=== PATIENT | male | born 1980 | race Caucasian/White ===

== ENCOUNTER 2017-07-20 07:49 | Inpatient (IN) | END 2017-07-26 22:25 | disposition home health service (06) | DRG 872 ==

== ENCOUNTER → 2018-10-06 | Outpatient (CLI) | payer OTHER ==
[~2018-10-06] MED LIST: ASPI-817 PO; ASPI81TA52 PO; ATOR-2 PO; ATOR40TA68 PO; GEMF600T8 PO; GLIP10TA14 PO; INSU100I33 SC; LEVO750T8 PO; LIDOCAINE 1% (MPF) 5 ML VIAL SC ONE; MERO1VIA3 IV; METF-480 PO; METF850T13 PO; NATE120T PO; OMEG100024 PO; OMEP20CA16 PO; REPA1TAB14 PO; REPA1TAB5 PO; Vancomycin Iv Per Pharmacy XX; [UNRECOGNIZED DRUG - CODE] IJ
== END | disposition home or self-care (01) ==
LOC: MERGE 08:49 → RAD 08:49
PROVIDERS: ATTEND Internal Medicine Infectious Disease
DX: M86.8X7 Other osteomyelitis, ankle and foot (principal)
CPT/HCPCS: 36569; 71045; 76937; Z7610

== ENCOUNTER 2018-10-08 11:18 | Inpatient (IN) | payer OTHER ==
[~2018-10-08] VITALS: Ht 182.9 cm; Wt 113.5 kg
[~2018-10-08 11:18] MED LIST changes: -ASPI81TA52 PO; -ATOR-2 PO; -GLIP10TA14 PO; -LIDOCAINE 1% (MPF) 5 ML VIAL SC ONE; -MERO1VIA3 IV; -METF-480 PO; -NATE120T PO; -REPA1TAB5 PO; -Vancomycin Iv Per Pharmacy XX
[2018-10-08] MEDS ORDERED: ONDANSETRON 4 MG INJ IV STA (11:52)
[2018-10-08] MEDS ORDERED: SODIUM CHLORIDE 0.9% 1L BAG IV* STA (11:52)
[2018-10-08] MEDS ORDERED: CEFEPIME 2GM/50 ML (PMX) 50 ML IVPB STA (11:52)
[2018-10-08] MEDS ORDERED: HYDROmorphONE 1 MG/ML SYG IV STA (11:52)
[2018-10-08] MEDS ORDERED: VANCOMYCIN 1 GM (PMX) 250 ML IVPB ONE (12:00)
--- NOTE | 2018-10-08 12:59 | ERD ---
ER Documentation Chief Complaint Chief Complaint left leg/foot pain - history of osteomyelitis HPI 88-year-old male history of diabetes who was sent from clinic for admission for osteomyelitis of the left foot. The patient has had drainage and discharge. The patient is being evaluated and worked up but had some issues with his PICC line. The patient has not had antibiotics in the past 24 to 48 hours. Patient was sent by his team supervisor Dr. Dumont. Patient describes moderate throbbing pain to the area. No significant fevers or chills. Symptoms worsening over the past 48 hours. ROS All systems reviewed and are negative except as per history of present illness. Medications Home Meds Active Scripts Repaglinide* (Prandin*) 1 Mg Tablet, 0.5 MG PO WITH MEALS, #90 TAB Prov:OBIE MCKAY V. BUDGET EXAMINER 06/19/18 Metformin Hcl* (Metformin Hcl*) 850 Mg Tablet, 850 MG PO BID WITH MEALS, #60 TAB Prov:OBIE MCKAY V. BUDGET EXAMINER 06/19/18 [place]-3/Dha/Epa/Fish Oil (Fish Oil 1,000 mg Softgel) 1,000 Mg Capsule, 2000 MG PO BID, #60 CAP Prov:OBIE MCKAY V. BUDGET EXAMINER 06/19/18 Gemfibrozil* (Gemfibrozil*) 600 Mg Tablet, 600 MG PO BID, #30 TAB Prov:MCKAYOBIE V. BUDGET EXAMINER 06/19/18 Atorvastatin* (Atorvastatin*) 40 Mg Tablet, 40 MG PO DAILY@21, #30 TAB Prov:MCKAYOBIE V. BUDGET EXAMINER 06/19/18 Levofloxacin* (Levofloxacin*) 750 Mg Tablet, 750 MG PO DAILY@06, #40 TAB Prov:MCKAYOBIE FAY V. BUDGET EXAMINER 06/19/18 Ampicillin (Ampicillin) 2 Gm Soln, 1 GM IJ Q8 for 40 Days Prov:OBIE MCKAY NP 06/19/18 Insulin Glargine,Hum.rec.anlog (Basaglar Andreapen U-100) 100 Unit/1 Ml Insuln.pen , 22 UNIT SC QHS, #1 EA Provide 100 lancet, 100 test strips, 100 32 gauge insulin pen needle. Blood sugar CHECK frequency 3 times a day. Prov:OBIE MCKAY NP 06/19/18 Reported Medications Omeprazole* (Omeprazole*) 20 Mg Capsule.dr, 20 MG PO DAILY, #30 CAP 06/11/18 Aspirin* (Aspirin* EC) 81 Mg Tablet.dr, 81 MG PO DAILY, TAB 06/11/18 Allergies Allergies: Coded Allergies: No Known Allergies (Verified Allergy, Unknown, 06/11/18) NO KNOWN ALLERGIES PMhx/Soc History of Surgery: Yes (2013 L toe amp & 2015 R toe amp) Anesthesia Reaction: No Hx Neurological Disorder: No Hx Respiratory Disorders: No Hx Cardiac Disorders: No Hx Psychiatric Problems: No Hx Miscellaneous Medical Probl: No Hx Alcohol Use: Yes (once a month) Hx Substance Use: No Hx Tobacco Use: Yes FmHx Family History: diabetes Physical Exam Vitals Vital Signs Date Temp Pulse Resp B/P (MAP) Pulse Ox O2 O2 Flow FiO2 Time Delivery Rate 10/08/18 99.0 115 24 132/88 100 11:19 (103) Physical Exam General: Well developed, well nourished, no acute distress Head: Normocephalic, atraumatic. Eyes: EOM intact ENT: Moist mucous membranes Neck: Full ROM Respiratory: No respiratory distress Cardiovascular: Well perfused distally Abdominal: Nondistended : Deferred MSK: Draining decubitus wound to the plantar surface of the left foot with warmth, no crepitus Neurologic: Alert and oriented, moving all extremities, normal speech, steady gait Skin: No rash Psych: Normal mood Result Diagram: 10/08/18 1219 Results 24 hrs Laboratory Tests Test 10/08/18 12:12 10/08/18 12:19 POC Venous Lactate 1.3 mmol/L White Blood Count 18.3 10^3/ul Red Blood Count 4.98 10^6/ul Hemoglobin 14.1 g/dl Hematocrit 41.8 % Mean Corpuscular Volume 83.9 fl Mean Corpuscular Hemoglobin 28.3 pg Mean Corpuscular Hemoglobin Concent 33.7 g/dl Red Cell Distribution Width 13.7 % Platelet Count 346 10^3/UL Mean Platelet Volume 10.9 fl Immature Granulocytes % 0.800 % Neutrophils % 83.2 % Lymphocytes % 9.6 % Monocytes % 4.4 % Eosinophils % 1.5 % Basophils % 0.5 % Nucleated Red Blood Cells % 0.0 /100WBC Immature Granulocytes # 0.140 10^3/ul Neutrophils # 15.2 10^3/ul Lymphocytes # 1.8 10^3/ul Monocytes # 0.8 10^3/ul Eosinophils # 0.3 10^3/ul Basophils # 0.1 10^3/ul Nucleated Red Blood Cells # 0.0 10^3/ul Prothrombin Time 13.4 Sec Prothrombin Time Ratio 1.0 INR International Normalized Ratio 1.01 Activated Partial Thromboplast Time 28.8 Sec Current Medications Medications Dose Sig/Umesh Start Time Status Last (Trade) Ordered Route PRN Stop Time Admin Dose Reason Admin 1 mg ONCE STAT 10/08/18 DC 10/08/18 Hydromorphone IV 11:52 10/08/18 12:18 HCl 11:55 (Dilaudid) Ondansetron 4 mg ONCE STAT 10/08/18 DC 10/08/18 HCl (Zofran IV 11:52 10/08/18 12:17 Inj) 11:55 Sodium 2,330 ml BOLUS OVER 2 10/08/18 DC 10/08/18 Chloride HOURS STAT 11:52 10/08/18 12:17 (NS) IV* 11:55 Cefepime HCl 50 ml @ ONCE STAT 10/08/18 DC 10/08/18 100 mls/hr IVPB 11:52 10/08/18 12:29 12:21 Vancomycin 250 ml @ ONCE ONCE 10/08/18 HCl 125 mls/hr IVPB 12:00 10/08/18 13:59 Ondansetron 4 mg BRIDGE ORDER 10/08/18 HCl (Zofran PRN IV 13:00 10/09/18 Inj) NAUSEA/VOMITI 12:59 NG 650 mg ER BRIDGE 10/08/18 Acetaminophen PRN PO 13:00 10/09/18 (Tylenol .MILD PAIN 12:59 Tab) 1-3 OR TEMP Procedures/MDM EKG, MONITORS, & DIAGNOSTIC IMAGING: XR foot IMPRESSION: 1. Charcot arthropathy, unchanged. 2. Atherosclerosis. 3. Prior amputation of the second toe, unchanged. 4. Gas in the soft tissues medially and possible lysis of the medial aspect of the first metatarsal phalangeal joint which may indicate osteomyelitis. This corresponds to the findings on the MRI of the left foot dated 10/06/2018. 5. Otherwise unremarkable images of the left foot. RPTAT: QQ EKG: I reviewed and interpreted a 12-lead EKG. Rhythm: Normal sinus rhythm ST Changes: No contiguous ST segment elevations T waves: No contiguous T wave inversions Impression: No evidence of acute cardiac ischemia LAB INTERPRETATION: I reviewed the laboratory testing and it shows leukocytosis, normal lactic acid MEDICAL DECISION MAKING: Patient being sent through the emergency room as a direct admission for evaluation and treatment of osteomyelitis. He has no evidence of endorgan dysfunction. Blood cultures and broad-spectrum antibiotics will be provided. ER COURSE: * Patient had blood cultures prior to broad-spectrum antibiotics. Lactic acid is reassuring. No evidence of severe sepsis or septic shock. * Patient does have Sirs with possible sepsis. Appropriate treatment has been provided. CONSULTATION: Photographic Plate Maker: Dr. Dumont DISPOSITION PLAN: Accepting care team and consultations: I discussed the current laboratory data, diagnostic imaging and emergency care provided. Admitting team: Dr. Dykes Admitting team indication: Insurance directed Sepsis Documentation: Patient's infectious symptoms have not stabilized and the patient is at risk of rapid decompensation. The patient will be admitted for careful hydration, antibiotic therapy, and infectious source control. SEVERE SEPSIS CRITERIA: Infectious source: Osteomyelitis of left foot End organ damage indicated by: No evidence of endorgan dysfunction SEPSIS MANAGEMENT Time of recognition of sepsis: Upon MD assessment. Time of recognition of severe sepsis: No severe sepsis at this time. Time of recognition of septic shock: No septic shock at this time. 3 HOUR BUNDLE Blood cultures x 2 before broad-spectrum antibiotics: Yes 30 ml/kg NS bolus completed Initial lactate less than 2 Repeat lactate pending repeat SEPTIC SHOCK ASSESSMENT: No lactic acid > 4.0 No persistent hypotension (SBP < 90 or 40 mmHg drop, MAP < 65) despite 30 mL/kg IV fluid bolus VOLUME REASSESSMENT FOR SEPTIC SHOCK: The patient does not meet criteria for septic shock in the emergency department at this time PERSISTENT HYPOTENSION TREATMENT: Comfort care no Central line not Required Vasopressor started not required I considered further perfusion assessment with CVP measurement, SCVO2, bedside ultrasound volume assessment, passive leg raise, trial of further fluid bolus. And proceeded with 30 ml/kg fluid bolus of NSS, broad spectrum antibiotics, and admission. CRITICAL CARE Critical care time 35 minutes Emergent fluid management while maintaining close respiratory support. Provision of immediate and broad-spectrum antibiotic therapy. Simultaneous assessment for possible sources in order to direct targeted therapy. Con sideration for invasive and chemical support to prevent cardiopulmonary collapse. Critical care time is independent of procedures performed. Departure Diagnosis: Primary Impression: Foot osteomyelitis, left Osteomyelitis type: unspecified type Qualified Codes: M86.9 - Osteomyelitis, unspecified Additional Impressions: Sepsis Sepsis type: sepsis due to unspecified organism Qualified Codes: A41.9 - Sepsis, unspecified organism Hyperglycemia Condition: Stable JOSE CRUZ BENAVIDEZ MD Oct 08, 2018 12:59
[2018-10-08 13:00] VITALS: Ht 182.9 cm; Wt 113.5 kg
[2018-10-08] MEDS ORDERED: GLIP10TA14 PO (13:00)
[2018-10-08] MEDS ORDERED: INSULIN LISPRO 100 UNIT/ML VIAL SC ONE (13:00)
[2018-10-08] MEDS ORDERED: ONDANSETRON 4 MG INJ IV PRN ×2 (13:00→15:00)
[2018-10-08] MEDS ORDERED: ACETAMINOPHEN 325 MG TAB PO PRN ×2 (13:00→15:00)
[2018-10-08] MEDS ORDERED: METF850T13 PO (13:01)
[2018-10-08] MEDS ORDERED: INSU100I33 SC (13:01)
[2018-10-08] MEDS ORDERED: ATOR40TA68 PO (13:01)
[2018-10-08] MEDS ORDERED: ASPI81TA52 PO (13:02)
[2018-10-08] MEDS ORDERED: OMEP20CA16 PO (13:02)
[2018-10-08] MEDS ORDERED: REPA1TAB5 PO (13:02)
[2018-10-08] MEDS ORDERED: NACL 0.9% 3 ML SYG IV SCH (15:00)
[2018-10-08] MEDS ORDERED: DOCUSATE SODIUM 100 MG CAP PO PRN (15:00)
[2018-10-08] MEDS ORDERED: ACETAMINOPHEN 650 MG SUPP PR PRN (15:00)
[2018-10-08] MEDS ORDERED: BISACODYL 10 MG SUPP PR PRN (15:00)
[2018-10-08] MEDS ORDERED: MAGNESIUM HYDROXIDE 30ML CUP PO PRN (15:00)
[2018-10-08] MEDS ORDERED: HYDROCODONE/APAP (5/325) TAB PO PRN (15:00)
[2018-10-08 15:32] VITALS: BP 132/72; PULSE 86; RESP 18
[2018-10-08] MEDS: morphine 2 MG INJ IV PRN ×2 (15:32→20:41)
--- NOTE | 2018-10-08 15:41 | HP ---
Date/Time of Note Date/Time of Note DATE: 10/08/18 TIME: 15:23 Assessment/Plan VTE Prophylaxis SCD applied (from Nsg): Yes Pharmacological prophylaxis: NA/contraindicated Pharm contraindication: low risk/ambulating Lines/Catheters IV Catheter Type (from Nrsg): picc line Assessment/Plan Hospital Course Assessment and plan 1. Infected right foot diabetic ulcer. - Tonal Regulator and infectious disease security consultant to follow. - Continue with antibiotics for now. - Follow-up on cultures. 2. Poorly controlled diabetes. - Follow-up on A1c. -Will get refrigerator car icer consultation. - Start on insulin. 3. History of charcot left foot. - Continue with pain management. 4. Obesity. -Weight reduction was advised. 5. History of cigarette smoking. - Cessation advised. Discussed plan of care with Dr. Dykes Result Diagram: 10/08/18 1219 10/08/18 1219 Results 24hrs Laboratory Tests Test 10/08/18 12:12 10/08/18 12:19 10/08/18 14:05 10/08/18 14:25 POC Venous Lactate 1.3 White Blood Count 18.3 #H Red Blood Count 4.98 Hemoglobin 14.1 Hematocrit 41.8 L Mean Corpuscular Volume 83.9 Mean Corpuscular 28.3 L Hemoglobin Mean Corpuscular 33.7 Hemoglobin Concent Red Cell Distribution 13.7 Width Platelet Count 346 Mean Platelet Volume 10.9 H Immature Granulocytes % 0.800 H Neutrophils % 83.2 H Lymphocytes % 9.6 L Monocytes % 4.4 Eosinophils % 1.5 Basophils % 0.5 Nucleated Red Blood 0.0 Cells % Immature Granulocytes # 0.140 H Neutrophils # 15.2 H Lymphocytes # 1.8 Monocytes # 0.8 Eosinophils # 0.3 Basophils # 0.1 Nucleated Red Blood 0.0 Cells # Erythrocyte 74 H Sedimentation Rate Prothrombin Time 13.4 Prothrombin Time Ratio 1.0 INR International 1.01 Normalized Ratio Activated 28.8 Partial Thromboplast Time Sodium Level 136 Potassium Level 4.1 Chloride Level 102 Carbon Dioxide Level 23 Anion Gap 11 Blood Urea Nitrogen 21 H Creatinine 0.94 Est Glomerular Filtrat > 60 Rate mL/min Glucose Level 403 *H Calcium Level 9.0 C-Reactive Protein 23.7 H Bedside Glucose 342 H Lactic Acid Level 0.9 HPI/ROS Admit Date/Time Admit Date/Time Oct 08, 2018 at 12:45 Hx of Present Illness This is a 38-year-old male with history of left Charcot foot, hyperlipidemia, uncontrolled diabetes, chronic left foot wound (he reports 2 years), who came to [facility] after being referred by his shellfish sorter Dr. Dumont. Patient reports that he has had his recent left foot wound since June 2018. He reports that he has since been on ampicillin and was recently switched to cefepime. He states that he was receiving antibiotics at home and that roughly a week ago his PICC line was dislodged. Patient did notify his shellfish sorter and was seen by him reportedly on October 08, 2018. After evaluation it was decided for patient to go to the hospital for further management. Patient reports having left foot pain. He was seen with a white count of 18.3 on labs. His glucose was also uncontrolled sugar as high as 403. Urinalysis at this time is pending. He states that his blood sugar is consistently high. We will evaluate him for the aformentiond issues. ROS 12 point review Of systems obtained and entirely negative except as mentioned in the history of present illness PMH/Family/Social Past Medical History Medical/surgical history 1. Hyperlipidemia 2. Uncontrolled diabetes 3. Charcot foot 4. Chronic left foot wound Medications Current Medications Ondansetron HCl (Zofran Inj) 4 mg BRIDGE ORDER PRN IV NAUSEA/VOMITING; Start 10/08/18 at 13:00; Stop 10/09/18 at 12:59 Acetaminophen (Tylenol Tab) 650 mg ER BRIDGE PRN PO .MILD PAIN 1-3 OR TEMP; Start 10/08/18 at 13:00; Stop 10/09/18 at 12:59 Aspirin (Halfprin) 81 mg DAILY PO ; Start 10/09/18 at 09:00 Atorvastatin Calcium (Lipitor) 40 mg QHS PO ; Start 10/08/18 at 21:00 Pantoprazole (Protonix Tab) 40 mg DAILY@0600 PO ; Start 10/09/18 at 06:00 IV Flush (NS 3 ml) 3 ml PER PROTOCOL IV ; Start 10/08/18 at 15:00 Ondansetron HCl (Zofran Inj) 4 mg Q6H PRN IV NAUSEA/VOMITING; Start 10/08/18 at 15:00 Acetaminophen (Tylenol Tab) 650 mg Q6H PRN PO .PAIN 1-3 OR TEMP; Start 10/08/18 at 15:00 Acetaminophen (Tylenol Supp) 650 mg Q6H PRN [place] .PAIN 1-3 OR TEMP; Start 10/08/18 at 15:00 Acetaminophen/ Hydrocodone Bitart ([place] (5/325)) 1 tab Q6H PRN PO .MOD PAIN 4- 6; Start 10/08/18 at 15:00 Acetaminophen/ Hydrocodone Bitart ([place] (5/325)) 2 tab Q6H PRN PO .SEVERE PAIN 7-10; Start 10/08/18 at 15:00 Morphine Sulfate (morphine) 2 mg Q4H PRN IV .SEVERE PAIN 7-10; Start 10/08/18 at 15:00 Docusate Sodium (Colace) 100 mg Q12H PRN PO .CONSTIPATION; Start 10/08/18 at 15:00 Magnesium Hydroxide (Milk Of Mag) 30 ml DAILY PRN PO .CONSTIPATION; Start 10/08/18 at 15:00 Bisacodyl (Dulcolax Supp) 10 mg DAILY PRN [place] .CONSTIPATION; Start 10/08/18 at 1 5:00 Pantoprazole (Protonix Iv) 40 mg DAILY@06 IV ; Start 10/09/18 at 06:00 Coded Allergies: No Known Allergies (Verified Allergy, Unknown, 10/08/18) NO KNOWN ALLERGIES Family History Significant Family History: cancer, diabetes Social History Alcohol Use: none Smoking Status: Current every day smoker Drug Use: none Exam/Review of Systems Vital Signs Vitals Vital Signs Date Temp Pulse Resp B/P (MAP) Pulse Ox O2 O2 Flow FiO2 Time Delivery Rate 10/08/18 76 18 125/76 99 Room Air 14:20 (92) 10/08/18 99.0 11:19 Exam Constitutional: alert, oriented, other (obese) Psych: no complaints Head: normocephalic Eyes: nl conjunctiva Neck: supple, non-tender Cardiovascular: regular rate and rhythm Gastrointestinal: soft, non-tender Musculoskeletal: other (Amputation right foot first toe, amputation left foot second toe) Neurological: GR[employer] SUPPORT II-XII intact, nl mental status Skin: other (infectious wound left foot ) ANNA ARVIZU NP Oct 08, 2018 15:33
[2018-10-08] MEDS ORDERED: VANCOMYCIN IV PER PHARMACY XX SCH (16:00)
[2018-10-08] MEDS: SOD CHLORIDE 0.9% 1,000 ML IV SCH (16:04)
[2018-10-08] MEDS ORDERED: GLUCAGON 1 MG INJ IM PRN (16:30)
[2018-10-08] MEDS ORDERED: GLUCOSE GEL 15 GRAM TUBE BUCCAL PRN (16:30)
[2018-10-08] MEDS ORDERED: DEXTROSE 50% 50 ML SYRINGE IV PRN ×2 (16:30)
[2018-10-08] MEDS ORDERED: VANCOMYCIN 1 GM 250 ML IVPB SCH (16:30)
[2018-10-08] MEDS ORDERED: GLUCOSE GEL 15 GRAM TUBE PO PRN ×2 (16:30)
--- NOTE | 2018-10-08 16:49 | CONS ---
Assessment/Plan Assessment/Plan Assessment/Plan (Daily) DM out of control with Charcot foot deformity , left foot. Osteo. Consultation Date/Type/Reason Admit Date/Time Oct 08, 2018 at 12:45 Initial Consult Date Type of Consult Podiatry, APC Reason for Consultation Admitted through ER for DM ulceration with Charcot Foot Deformity/Osteomyelitis. Date/Time of Note DATE: 10/08/18 TIME: 16:45 Exam/Review of Systems Exam Vitals Vital Signs Date Temp Pulse Resp B/P (MAP) Pulse Ox O2 O2 Flow FiO2 Time Delivery Rate 10/08/18 97.7 86 18 132/72 99 Room Air 15:32 (92) Musculoskeletal: nl extremities to inspection, nl gait and stance, joint tend erness, muscle tone, muscle weakness, range of motion, spine non-tender, swelling, other Results Result Diagram: 10/08/18 1219 10/08/18 1219 Results 24hrs Laboratory Tests Test 10/08/18 12:12 10/08/18 12:19 10/08/18 14:05 10/08/18 14:25 POC Venous Lactate 1.3 White Blood Count 18.3 #H Red Blood Count 4.98 Hemoglobin 14.1 Hematocrit 41.8 L Mean Corpuscular Volume 83.9 Mean Corpuscular 28.3 L Hemoglobin Mean Corpuscular 33.7 Hemoglobin Concent Red Cell Distribution 13.7 Width Platelet Count 346 Mean Platelet Volume 10.9 H Immature Granulocytes % 0.800 H Neutrophils % 83.2 H Lymphocytes % 9.6 L Monocytes % 4.4 Eosinophils % 1.5 Basophils % 0.5 Nucleated Red Blood 0.0 Cells % Immature Granulocytes # 0.140 H Neutrophils # 15.2 H Lymphocytes # 1.8 Monocytes # 0.8 Eosinophils # 0.3 Basophils # 0.1 Nucleated Red Blood 0.0 Cells # Erythrocyte 74 H Sedimentation Rate Prothrombin Time 13.4 Prothrombin Time Ratio 1.0 INR International 1.01 Normalized Ratio Activated 28.8 Partial Thromboplast Time Sodium Level 136 Potassium Level 4.1 Chloride Level 102 Carbon Dioxide Level 23 Anion Gap 11 Blood Urea Nitrogen 21 H Creatinine 0.94 Est Glomerular Filtrat > 60 Rate mL/min Glucose Level 403 *H Calcium Level 9.0 C-Reactive Protein 23.7 H Bedside Glucose 342 H Lactic Acid Level 0.9 Medications Medication Current Medications Ondansetron HCl (Zofran Inj) 4 mg BRIDGE ORDER PRN IV NAUSEA/VOMITING; Start 10/08/18 at 13:00; Stop 10/09/18 at 12:59 Acetaminophen (Tylenol Tab) 650 mg ER BRIDGE PRN PO .MILD PAIN 1-3 OR TEMP; Start 10/08/18 at 13:00; Stop 10/09/18 at 12:59 Aspirin (Halfprin) 81 mg DAILY PO ; Start 10/09/18 at 09:00 Atorvastatin Calcium (Lipitor) 40 mg QHS PO ; Start 10/08/18 at 21:00 Pantoprazole (Protonix Tab) 40 mg DAILY@0600 PO ; Start 10/09/18 at 06:00 IV Flush (NS 3 ml) 3 ml PER PROTOCOL IV ; Start 10/08/18 at 15:00 Ondansetron HCl (Zofran Inj) 4 mg Q6H PRN IV NAUSEA/VOMITING; Start 10/08/18 at 15:00 Acetaminophen (Tylenol Tab) 650 mg Q6H PRN PO .PAIN 1-3 OR TEMP; Start 10/08/18 at 15:00 Acetaminophen (Tylenol Supp) 650 mg Q6H PRN [place] .PAIN 1-3 OR TEMP; Start 10/08/18 at 15:00 Acetaminophen/ Hydrocodone Bitart ([place] (5/325)) 1 tab Q6H PRN PO .MOD PAIN 4- 6; Start 10/08/18 at 15:00 Acetaminophen/ Hydrocodone Bitart ([place] (5/325)) 2 tab Q6H PRN PO .SEVERE PAIN 7-10; Start 10/08/18 at 15:00 Morphine Sulfate (morphine) 2 mg Q4H PRN IV .SEVERE PAIN 7-10 Last administered on 10/08/18at 15:32; Admin Dose 2 MG; Start 10/08/18 at 15:00 Docusate Sodium (Colace) 100 mg Q12H PRN PO .CONSTIPATION; Start 10/08/18 at 15:00 Magnesium Hydroxide (Milk Of Mag) 30 ml DAILY PRN PO .CONSTIPATION; Start 10/08/18 at 15:00 Bisacodyl (Dulcolax Supp) 10 mg DAILY PRN [place] .CONSTIPATION; Start 10/08/18 at 15:00 Cefepime HCl 50 ml @ 100 mls/hr Q12 IVPB ; Start 10/08/18 at 21:00 Vancomycin HCl (Vanco Iv Per Pharmacy) VANCOMYCIN PER PHARMACY PER PROTOCOL XX ; Start 10/08/18 at 16:00 Diagnostic Test (Pha) (Accu-Chek) 1 ea 02 XX ; Start 10/09/18 at 02:00 Insulin Glargine (Lantus) 22 units DAILY@2000 SC ; Start 10/08/18 at 20:00 Insulin Aspart (Novolog Insulin Pen) 7 unit WITH MEALS SC ; Start 10/08/18 at 18:00 Insulin Aspart (Novolog Insulin Pen) NOVOLOG *MILD* ALGORITHM WITH MEALS BEDTIME SC ; Start 10/08/18 at 18:00 Sodium Chloride 1,000 ml @ 75 mls/hr [id number] IV Last administered on 10/08/18at 16:04; Admin Dose 75 MLS/HR; Start 10/08/18 at 16:00 Miscellaneous Information 1 ea NOTE XX ; Start 10/08/18 at 16:30 Glucose (Glutose) 15 gm Q15M PRN PO DECREASED GLUCOSE; Start 10/08/18 at 16:30 Glucose (Glutose) 22.5 gm Q15M PRN PO DECREASED GLUCOSE; Start 10/08/18 at 16:30 Dextrose (D50w Syringe) 25 ml Q15M PRN IV DECREASED GLUCOSE; Start 10/08/18 at 16:30 Dextrose (D50w Syringe) 50 ml Q15M PRN IV DECREASED GLUCOSE; Start 10/08/18 at 16:30 Glucagon (Glucagen) 1 mg Q15M PRN IM DECREASED GLUCOSE; Start 10/08/18 at 16:30 Glucose (Glutose) 15 gm Q15M PRN BUCCAL DECREASED GLUCOSE; Start 10/08/18 at 16:30 Vancomycin HCl 250 ml @ 125 mls/hr ONCE@1630 IVPB ; Start 10/08/18 at 16:30; Stop 10/08/18 at 19:00 Vancomycin HCl 1.75 gm/Sodium Chloride 500 ml @ 125 mls/hr Q12H IVPB ; Start 10/09/18 at 05:00 TALIA ERVIN DPM Oct 08, 2018 16:49
[2018-10-08] MEDS: INSULIN ASPART [NOVOLOG] 3 ML PEN SC SCH ×2 (17:33→20:35)
--- NOTE | 2018-10-08 17:42 | CONS ---
Assessment/Plan Assessment/Plan Problems: (1) Diabetes mellitus type 2 in obese Status: Chronic Comment: Going to revisit the regimen that had worked in June and fine-tune from here. Palm along carefully and get his sugars under control. 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 CC: MICHAEL MITCHELL MD; ANNA ARVIZU NP; TALIA ERVIN DPM ; Consultation Date/Type/Reason Admit Date/Time Oct 08, 2018 at 12:45 Date of Consultation: Oct 08, 2018 Type of Consult Endocrine Reason for Consultation Diabetes mellitus type 2; peripheral neuropathy; diabetic foot ulcer; status post right toe amputation; status post left toe amputation; hyperlipidemia; esse ntial hypertension; right foot osteomyelitis; right foot Charcot joint Requesting Provider: ANNA ARVIZU NP Date/Time of Note DATE: 10/08/18 TIME: 17:33 Hx of Present Illness 38-year-old male with diabetes mellitus type 2 with complications, although not of vascular disease (please see angiography performed June 16, 2018FINDINGS OF ANGIOGRAPHY: The infrarenal aorta is widely patent with no disease. Both common external and internal iliac arteries are widely patent. The common, superficial and profunda femoral arteries proximally were patent bilaterally without any disease. On the right, the entire SFA and popliteal are widely patent with good caliber. There is no disease whatsoever and there is on the right 3-vessel runoff below the knee, the anterior tibial and posterior tibial both go down across the ankle into the foot and appears patent pedal arch. The peroneal artery is patent down to the ankle and then kind of dissipates at the ankle, so there is essentially normal study of the aorta and right lower extremities. I then removed the catheter over the wire and then did a groin shot on the left confirmed that puncture was in the common femoral artery. We then used a 6-Cymro Angio-Seal device to close the left groin puncture site with good hemostasis and a good femoral pulse after deployment. There were no intraprocedural complications. The patient tolerated the procedure well. He is going to the OR for debridement now.) He is admitted with foot infection with sugar out of control. Please note at his last admission we have actually gotten his sugar under very good control. He reports that his primary care physician however was unable to get some of the medications approved her to the pharmacy and he has had some loss of control. Constitutional: febrile Respiratory: no complaints Cardiovascular: no complaints Gastrointestinal: no complaints Genitourinary: no complaints Musculoskeletal: no complaints Past Medical History Medical History: diabetes (Type II with complications), GERD, high cholesterol (Hyperlipidemia), other (Bone infection) Home Meds Reported Medications Omeprazole* (Omeprazole*) 20 Mg Capsule.dr, 20 MG PO DAILY, #30 CAP 10/08/18 Aspirin (Low Dose Aspirin) 81 Mg Tablet.dr, 81 MG PO DAILY, #30 TAB 10/08/18 Repaglinide* (Repaglinide*) 1 Mg Tablet, 1 MG PO AC MEALS, TAB 10/08/18 Atorvastatin* (Atorvastatin*) 40 Mg Tablet, 40 MG PO QHS, #30 TAB 10/08/18 Metformin Hcl* (Metformin Hcl*) 850 Mg Tablet, 850 MG PO WITH BREAKFAST DINNE, #60 TAB 10/08/18 Insulin Glargine,Hum.rec.anlog (Basaglar Kwikpen U-100) 100 Unit/1 Ml Insuln.pen, 33 UNIT SC QHS, EA 10/08/18 Glipizide* (Glipizide*) 10 Mg Tablet, 10 MG PO BID, TAB 10/08/18 Discontinued Reported Medications Omeprazole* (Omeprazole*) 20 Mg Capsule.dr, 20 MG PO DAILY, #30 CAP 06/11/18 Aspirin* (Aspirin* EC) 81 Mg Tablet.dr, 81 MG PO DAILY, TAB 06/11/18 Discontinued Scripts Repaglinide* (Prandin*) 1 Mg Tablet, 0.5 MG PO WITH MEALS, #90 TAB Prov:MCKAY,OBIE V. INFORMATICS DEVELOPER 06/19/18 Metformin Hcl* (Metformin Hcl*) 850 Mg Tablet, 850 MG PO BID WITH MEALS, #60 TAB Prov:MCKAY,OBIE V. INFORMATICS DEVELOPER 06/19/18 Ranger-3/Dha/Epa/Fish Oil (Fish Oil 1,000 mg Softgel) 1,000 Mg Capsule, 2000 MG PO BID, #60 CAP Prov:MCKAY,OBIE V. INFORMATICS DEVELOPER 06/19/18 Gemfibrozil* (Gemfibrozil*) 600 Mg Tablet, 600 MG PO BID, #30 TAB Prov:OBIE MCKAY V. INFORMATICS DEVELOPER 06/19/18 Atorvastatin* (Atorvastatin*) 40 Mg Tablet, 40 MG PO DAILY@21, #30 TAB Prov:MCKAYOBIE V. INFORMATICS DEVELOPER 06/19/18 Levofloxacin* (Levofloxacin*) 750 Mg Tablet, 750 MG PO DAILY@06, #40 TAB Prov:OBIE MCKAY V. INFORMATICS DEVELOPER 06/19/18 Ampicillin (Ampicillin) 2 Gm Soln, 1 GM IJ Q8 for 40 Days Prov:OBIE MCKAY VBoni INFORMATICS DEVELOPER 06/19/18 Insulin Glargine,Hum.rec.anlog (Basaglar Kwikpen U-100) 100 Unit/1 Ml Insuln.pen, 22 UNIT SC QHS, #1 EA Provide 100 lancet, 100 test strips, 100 32 gauge insulin pen needle. Blood sugar CHECK frequency 3 times a day. Prov:OBIE MCKAY VBoni INFORMATICS DEVELOPER 06/19/18 Medications Current Medications Ondansetron HCl (Zofran Inj) 4 mg BRIDGE ORDER PRN IV NAUSEA/VOMITING; Start 10/08/18 at 13:00; Stop 10/09/18 at 12:59 Acetaminophen (Tylenol Tab) 650 mg ER BRIDGE PRN PO .MILD PAIN 1-3 OR TEMP; Start 10/08/18 at 13:00; Stop 10/09/18 at 12:59 Aspirin (Halfprin) 81 mg DAILY PO ; Start 10/09/18 at 09:00 Atorvastatin Calcium (Lipitor) 40 mg QHS PO ; Start 10/08/18 at 21:00 Pantoprazole (Protonix Tab) 40 mg DAILY@0600 PO ; Start 10/09/18 at 06:00 IV Flush (NS 3 ml) 3 ml PER PROTOCOL IV ; Start 10/08/18 at 15:00 Ondansetron HCl (Zofran Inj) 4 mg Q6H PRN IV NAUSEA/VOMITING; Start 10/08/18 at 15:00 Acetaminophen (Tylenol Tab) 650 mg Q6H PRN PO .PAIN 1-3 OR TEMP; Start 10/08/18 at 15:00 Acetaminophen (Tylenol Supp) 650 mg Q6H PRN [place] .PAIN 1-3 OR TEMP; Start 10/08/18 at 15:00 Acetaminophen/ Hydrocodone Bitart ([place] (5/325)) 1 tab Q6H PRN PO .MOD PAIN 4- 6; Start 10/08/18 at 15:00 Acetaminophen/ Hydrocodone Bitart ([place] (5/325)) 2 tab Q6H PRN PO .SEVERE PAIN 7-10; Start 10/08/18 at 15:00 Morphine Sulfate (morphine) 2 mg Q4H PRN IV .SEVERE PAIN 7-10 Last administered on 10/08/18at 15:32; Admin Dose 2 MG; Start 10/08/18 at 15:00 Docusate Sodium (Colace) 100 mg Q12H PRN PO .CONSTIPATION; Start 10/08/18 at 15:00 Magnesium Hydroxide (Milk Of Mag) 30 ml DAILY PRN PO .CONSTIPATION; Start 10/08/18 at 15:00 Bisacodyl (Dulcolax Supp) 10 mg DAILY PRN [place] .CONSTIPATION; Start 10/08/18 at 15:00 Cefepime HCl 50 ml @ 100 mls/hr Q12 IVPB ; Start 10/08/18 at 21:00 Vancomycin HCl (Vanco Iv Per Pharmacy) VANCOMYCIN PER PHARMACY PER PROTOCOL XX ; Start 10/08/18 at 16:00 Diagnostic Test (Pha) (Accu-Chek) 1 ea 02 XX ; Start 10/09/18 at 02:00 Insulin Glargine (Lantus) 22 units DAILY@2000 SC ; Start 10/08/18 at 20:00 Insulin Aspart (Novolog Insulin Pen) 7 unit WITH MEALS SC ; Start 10/08/18 at 18:00 Insulin Aspart (Novolog Insulin Pen) NOVOLOG *MILD* ALGORITHM WITH MEALS BEDTIME SC ; Start 10/08/18 at 18:00 Sodium Chloride 1,000 ml @ 75 mls/hr [id number] IV Last administered on 10/08/18at 16:04; Admin Dose 75 MLS/HR; Start 10/08/18 at 16:00 Miscellaneous Information 1 ea NOTE XX ; Start 10/08/18 at 16:30 Glucose (Glutose) 15 gm Q15M PRN PO DECREASED GLUCOSE; Start 10/08/18 at 16:30 Glucose (Glutose) 22.5 gm Q15M PRN PO DECREASED GLUCOSE; Start 10/08/18 at 16:30 Dextrose (D50w Syringe) 25 ml Q15M PRN IV DECREASED GLUCOSE; Start 10/08/18 at 16:30 Dextrose (D50w Syringe) 50 ml Q15M PRN IV DECREASED GLUCOSE; Start 10/08/18 at 16:30 Glucagon (Glucagen) 1 mg Q15M PRN IM DECREASED GLUCOSE; Start 10/08/18 at 16:30 Glucose (Glutose) 15 gm Q15M PRN BUCCAL DECREASED GLUCOSE; Start 10/08/18 at 16:30 Vancomycin HCl 250 ml @ 125 mls/hr ONCE@1630 IVPB ; Start 10/08/18 at 16:30; Stop 10/08/18 at 19:00 Vancomycin HCl 1.75 gm/Sodium Chloride 500 ml @ 125 mls/hr Q12H IVPB ; Start 10/09/18 at 05:00 Allergies: Coded Allergies: No Known Allergies (Verified Allergy, Unknown, 10/08/18) NO KNOWN ALLERGIES Past Surgical History Past Surgical Hx: other (Past post bilateral toe amputations) Family History Significant Family History: diabetes, hypertension Social History Alcohol Use: none Smoking Status: Current every day smoker Drug Use: none Exam/Review of Systems Exam Vitals Vital Signs Date Temp Pulse Resp B/P (MAP) Pulse Ox O2 O2 Flow FiO2 Time Delivery Rate 10/08/18 97.7 86 18 132/72 99 Room Air 15:32 (92) Constitutional: alert, oriented Neck: supple, non-tender Respiratory: clear to auscultation, normal air movement Cardiovascular: regular rate and rhythm, nl pulses Results Result Diagram: 10/08/18 1219 10/08/18 1219 Results 24hrs Laboratory Tests Test 10/08/18 12:12 10/08/18 12:19 10/08/18 14:05 10/08/18 14:25 POC Venous Lactate 1.3 White Blood Count 18.3 #H Red Blood Count 4.98 Hemoglobin 14.1 Hematocrit 41.8 L Mean Corpuscular Volume 83.9 Mean Corpuscular 28.3 L Hemoglobin Mean Corpuscular 33.7 Hemoglobin Concent Red Cell Distribution 13.7 Width Platelet Count 346 Mean Platelet Volume 10.9 H Immature Granulocytes % 0.800 H Neutrophils % 83.2 H Lymphocytes % 9.6 L Monocytes % 4.4 Eosinophils % 1.5 Basophils % 0.5 Nucleated Red Blood 0.0 Cells % Immature Granulocytes # 0.140 H Neutrophils # 15.2 H Lymphocytes # 1.8 Monocytes # 0.8 Eosinophils # 0.3 Basophils # 0.1 Nucleated Red Blood 0.0 Cells # Erythrocyte 74 H Sedimentation Rate Prothrombin Time 13.4 Prothrombin Time Ratio 1.0 INR International 1.01 Normalized Ratio Activated 28.8 Partial Thromboplast Time Sodium Level 136 Potassium Level 4.1 Chloride Level 102 Carbon Dioxide Level 23 Anion Gap 11 Blood Urea Nitrogen 21 H Creatinine 0.94 Est Glomerular Filtrat > 60 Rate mL/min Glucose Level 403 *H Calcium Level 9.0 C-Reactive Protein 23.7 H Bedside Glucose 342 H Lactic Acid Level 0.9 Test 10/08/18 16:00 Lactic Acid Level 1.1 Medications Medication Current Medications Ondansetron HCl (Zofran Inj) 4 mg BRIDGE ORDER PRN IV NAUSEA/VOMITING; Start 10/08/18 at 13:00; Stop 10/09/18 at 12:59 Acetaminophen (Tylenol Tab) 650 mg ER BRIDGE PRN PO .MILD PAIN 1-3 OR TEMP; Start 10/08/18 at 13:00; Stop 10/09/18 at 12:59 Aspirin (Halfprin) 81 mg DAILY PO ; Start 10/09/18 at 09:00 Atorvastatin Calcium (Lipitor) 40 mg QHS PO ; Start 10/08/18 at 21:00 Pantoprazole (Protonix Tab) 40 mg DAILY@0600 PO ; Start 10/09/18 at 06:00 IV Flush (NS 3 ml) 3 ml PER PROTOCOL IV ; Start 10/08/18 at 15:00 Ondansetron HCl (Zofran Inj) 4 mg Q6H PRN IV NAUSEA/VOMITING; Start 10/08/18 at 15:00 Acetaminophen (Tylenol Tab) 650 mg Q6H PRN PO .PAIN 1-3 OR TEMP; Start 10/08/18 at 15:00 Acetaminophen (Tylenol Supp) 650 mg Q6H PRN [place] .PAIN 1-3 OR TEMP; Start 10/08/18 at 15:00 Acetaminophen/ Hydrocodone Bitart ([place] (5/325)) 1 tab Q6H PRN PO .MOD PAIN 4- 6; Start 10/08/18 at 15:00 Acetaminophen/ Hydrocodone Bitart ([place] (5/325)) 2 tab Q6H PRN PO .SEVERE PAIN 7-10; Start 10/08/18 at 15:00 Morphine Sulfate (morphine) 2 mg Q4H PRN IV .SEVERE PAIN 7-10 Last administered on 10/08/18at 15:32; Admin Dose 2 MG; Start 10/08/18 at 15:00 Docusate Sodium (Colace) 100 mg Q12H PRN PO .CONSTIPATION; Start 10/08/18 at 15:00 Magnesium Hydroxide (Milk Of Mag) 30 ml DAILY PRN PO .CONSTIPATION; Start 10/08/18 at 15:00 Bisacodyl (Dulcolax Supp) 10 mg DAILY PRN [place] .CONSTIPATION; Start 10/08/18 at 15:00 Cefepime HCl 50 ml @ 100 mls/hr Q12 IVPB ; Start 10/08/18 at 21:00 Vancomycin HCl (Vanco Iv Per Pharmacy) VANCOMYCIN PER PHARMACY PER PROTOCOL XX ; Start 10/08/18 at 16:00 Diagnostic Test (Pha) (Accu-Chek) 1 ea 02 XX ; Start 10/09/18 at 02:00 Insulin Glargine (Lantus) 22 units DAILY@2000 SC ; Start 10/08/18 at 20:00 Insulin Aspart (Novolog Insulin Pen) 7 unit WITH MEALS SC ; Start 10/08/18 at 18:00 Insulin Aspart (Novolog Insulin Pen) NOVOLOG *MILD* ALGORITHM WITH MEALS BEDTIME SC ; Start 10/08/18 at 18:00 Sodium Chloride 1,000 ml @ 75 mls/hr [id number] IV Last administered on 10/08/18at 16:04; Admin Dose 75 MLS/HR; Start 10/08/18 at 16:00 Miscellaneous Information 1 ea NOTE XX ; Start 10/08/18 at 16:30 Glucose (Glutose) 15 gm Q15M PRN PO DECREASED GLUCOSE; Start 10/08/18 at 16:30 Glucose (Glutose) 22.5 gm Q15M PRN PO DECREASED GLUCOSE; Start 10/08/18 at 16:30 Dextrose (D50w Syringe) 25 ml Q15M PRN IV DECREASED GLUCOSE; Start 10/08/18 at 16:30 Dextrose (D50w Syringe) 50 ml Q15M PRN IV DECREASED GLUCOSE; Start 10/08/18 at 16:30 Glucagon (Glucagen) 1 mg Q15M PRN IM DECREASED GLUCOSE; Start 10/08/18 at 16:30 Glucose (Glutose) 15 gm Q15M PRN BUCCAL DECREASED GLUCOSE; Start 10/08/18 at 16:30 Vancomycin HCl 250 ml @ 125 mls/hr ONCE@1630 IVPB ; Start 10/08/18 at 16:30; Stop 10/08/18 at 19:00 Vancomycin HCl 1.75 gm/Sodium Chloride 500 ml @ 125 mls/hr Q12H IVPB ; Start 10/09/18 at 05:00 MANOLO ARREDONDO MD Oct 08, 2018 17:42
[2018-10-08] MEDS: NATEGLINIDE 120 MG TAB PO SCH (17:46)
[2018-10-08] MEDS: metFORMIN 850 MG TAB PO SCH (17:49)
[2018-10-08] MEDS ORDERED: INSULIN ASPART [NOVOLOG] 3 ML PEN SC SCH (18:00)
[2018-10-08 20:00] VITALS: BP 107/62; PULSE 96; RESP 18
[2018-10-08] MEDS ORDERED: INSULIN GLARGINE [LANTus] (100 UNITS/ML) SYG SC SCH (20:00)
[2018-10-08 20:20] VITALS: PULSE 85
[2018-10-08] MEDS: FISH OIL 1,000 MG CAP PO SCH (20:32)
[2018-10-08] MEDS: ATORVASTATIN 80 MG TAB PO SCH (20:32)
--- NOTE | 2018-10-08 20:36 | CONS ---
DATE OF ADMISSION: 10/08/2018 DATE OF CONSULTATION: 10/08/2018 TYPE OF CONSULTATION: Infectious disease. REASON FOR CONSULTATION: Antibiotic management. HISTORY OF PRESENT ILLNESS: Cj Wells is a very pleasant 38-year-old male well known to me with a history of osteomyelitis. The patient comes in now with infected left foot diabetic ulcer with osteomyelitis of the left foot. The patient has a history of diabetes mellitus. He has had so me drainage and discharge. He was seen by myself 1 week ago. A PICC line was ordered and he was sup posed to be on IV antibiotic therapy; however, the PICC line was not put in until I believe yesterday . He was seen by Dr. Dumont and because of increasing pain, patient was readmitted to the hospital. PAST MEDICAL HISTORY: Surgery 2014, left toe amputation in 2016. Right toe amputation. FAMILY HISTORY: He has a family history of diabetes. SOCIAL HISTORY: He rarely drinks. He does smoke. He does not abuse drugs. ALLERGIES: NONE TO PENICILLIN, SULFA, OR FOODS. MEDICATIONS: Per chart. REVIEW OF SYSTEMS: Noncontributory. PHYSICAL EXAMINATION: GENERAL: The patient is well-developed, well-nourished, cheerful male who is alert, respons dalila, in no acute distress. VITAL SIGNS: Stable. He is afebrile. SKIN: Without generalized rash. HEENT: Within normal limits. NECK: Supple. LYMPH NODES: None palpable. CHEST: Decreased breath sounds at the bases. HEART: Without murmur or gallop. ABDOMEN: Soft, nontender, without organosplenomegaly or masses. EXTREMITIES: Both of his extremities both feet are wrapped and bandaged at this time. RECTAL AND GENITAL: Deferred. NEUROLOGIC: No focal neurological abnormality. ANCILLARY LABORATORY DATA: White count of 18.3 with 83% neutrophils, H and H of 14.1 and 41.8, plate let count 346,000. The patient was started on vancomycin and cefepime. X-ray showed Charcot arthrop athy unchanged, atherosclerosis, prior amputation of the 2nd toe unchanged, gas in the soft tissue me dially and possibly lysis of the medial aspect of the first metatarsophalangeal joint which may indic ate osteomyelitis. This corresponds to the findings of MRI of the left foot from 10/06/2018; otherwi se, these are the findings on the left foot. PLAN: We will continue the patient on his current antibiotics of vancomycin and cefepime for his ost eomyelitis. I will dictate my findings to the hospitalist and to the podiatric staff of the [facility]. Dictated By: CASSIA TOBIAS MD, JD/KIRT Conf#: [id number] DID#: [id number] CC: RESHMA KUMARI MD;*EndCC*
[2018-10-08] MEDS: CEFEPIME 2GM/50 ML (PMX) 50 ML IVPB SCH (20:45)
[2018-10-08] MEDS ORDERED: ATORVASTATIN 40 MG TAB PO SCH (21:00)
[2018-10-08] MEDS: HYDROCODONE/APAP (5/325) TAB PO PRN (22:42)
[2018-10-09 01:11] VITALS: BP 111/68; PULSE 85; RESP 18
[2018-10-09] MEDS: ACCU-CHEK XX SCH (02:21)
[2018-10-09] MEDS: PANTOPRAZOLE (EC) 40 MG TAB PO SCH (05:27)
[2018-10-09] MEDS: VANCOMYCIN HCL 1.75 GM in SOD CHLORIDE 0.9% 500 ML IVPB SCH ×2 (05:27→17:07)
[2018-10-09] MEDS: SOD CHLORIDE 0.9% 1,000 ML IV SCH ×2 (05:28→18:40)
[2018-10-09] MEDS ORDERED: PANTOPRAZOLE 40 MG INJ IV SCH (06:00)
[2018-10-09] MEDS: ASPIRIN (EC) 81 MG TAB PO SCH (08:32)
[2018-10-09] MEDS: metFORMIN 850 MG TAB PO SCH ×2 (08:32→17:08)
[2018-10-09] MEDS: FISH OIL 1,000 MG CAP PO SCH ×2 (08:32→20:52)
[2018-10-09] MEDS: NATEGLINIDE 120 MG TAB PO SCH ×3 (08:32→17:08)
[2018-10-09] MEDS: INSULIN ASPART [NOVOLOG] 3 ML PEN SC SCH ×4 (08:35→20:59)
[2018-10-09 09:03] VITALS: BP 121/76; PULSE 86; RESP 20
[2018-10-09] MEDS: CEFEPIME 2GM/50 ML (PMX) 50 ML IVPB SCH (09:45)
[2018-10-09] MEDS: HYDROCODONE/APAP (5/325) TAB PO PRN ×2 (12:32→20:53)
--- NOTE | 2018-10-09 13:48 | CONS ---
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 (2) Diabetes, polyneuropathy Status: Chronic Comment: Sugar control is coming into line quite nicely. Please note his sugars at home were worse than he had described based on his A1c. However here in a controlled environment with controlled administration of medications we are getting close to target Qualifiers: Diabetes mellitus type: type 2 Qualified Codes: E11.42 - Type 2 diabetes mellitus with diabetic polyneuropathy (3) Osteomyelitis of right foot Status: Acute Comment: As per infectious disease and podiatry Qualifiers: Osteomyelitis type: acute hematogenous Qualified Codes: M86.071 - Acute hematogenous osteomyelitis, right ankle and foot (4) Mixed hyperlipidemia due to type 2 diabetes mellitus Status: Chronic Comment: On full dose therapy, recheck labs in the morning Consultation Date/Type/Reason Admit Date/Time Oct 08, 2018 at 12:45 Initial Consult Date 10/08/18 Type of Consult Endocrine Reason for Consultation Diabetes mellitus type 2 with inadequate control Requesting Provider: ANNA ARVIZU NP Date/Time of Note DATE: 10/09/18 TIME: 13:41 24 HR Interval Summary Free Text/Dictation Patient reports his sugars are better without hypoglycemia Constitutional: no complaints (No fevers chills or sweats) Detailed Summary Respiratory: no complaints Endocrine: no complaints Exam/Review of Systems Exam Vitals Vital Signs Date Temp Pulse Resp B/P (MAP) Pulse Ox O2 O2 Flow FiO2 Time Delivery Rate 10/09/18 98.4 86 20 121/76 97 09:03 (91) 10/08/18 Room Air 20:00 Intake and Output 10/08/18 10/08/18 10/09/18 1515:00 23:00 07:00 IntakeIntake Total 50 ml 985 ml 925 ml OutputOutput Total 550 ml BalanceBalance 50 ml 435 ml 925 ml Constitutional: alert, oriented Respiratory: clear to auscultation, normal air movement Gastrointestinal: soft, nl liver, spleen, non-tender Extremities: normal pulses Results Result Diagram: 10/09/18 0507 10/09/18 0507 Results 24hrs Laboratory Tests Test 10/08/18 14:05 10/08/18 14:25 10/08/18 16:00 10/08/18 17:30 Bedside Glucose 342 H 221 H Lactic Acid Level 0.9 1.1 Test 10/08/18 19:10 10/08/18 20:31 10/09/18 02:08 10/09/18 05:07 Urine Color YELLOW Urine Clarity CLEAR Urine pH 5.0 Urine Specific [place] 1.028 Urine Ketones NEGATIVE Urine Nitrite NEGATIVE Urine Bilirubin NEGATIVE Urine Urobilinogen NEGATIVE Urine Leukocyte Esterase NEGATIVE Urine Hemoglobin NEGATIVE Urine Glucose 3+ H Urine Total Protein NEGATIVE Bedside Glucose 196 141 White Blood Count 14.0 #H Red Blood Count 4.23 L Hemoglobin 12.0 L Hematocrit 36.3 L Mean Corpuscular Volume 85.8 Mean Corpuscular 28.4 L Hemoglobin Mean Corpuscular 33.1 Hemoglobin Concent Red Cell Distribution 13.7 Width Platelet Count 298 Mean Platelet Volume 10.7 H Immature Granulocytes % 0.800 H Neutrophils % 75.4 Lymphocytes % 16.6 Monocytes % 4.4 Eosinophils % 2.4 Basophils % 0.4 Nucleated Red Blood 0.0 Cells % Immature Granulocytes # 0.110 H Neutrophils # 10.6 H Lymphocytes # 2.3 Monocytes # 0.6 Eosinophils # 0.3 Basophils # 0.1 Nucleated Red Blood 0.0 Cells # Sodium Level 139 Potassium Level 3.8 Chloride Level 107 Carbon Dioxide Level 24 Anion Gap 8 Blood Urea Nitrogen 15 Creatinine 0.73 Est Glomerular Filtrat > 60 Rate mL/min Glucose Level 150 # Hemoglobin A1c 12.2 H Calcium Level 8.4 Phosphorus Level 3.5 Magnesium Level 1.8 Total Bilirubin 0.6 Direct Bilirubin 0.00 Indirect Bilirubin 0.6 Aspartate Amino 14 L Transf (AST/SGOT) Alanine 25 Aminotransferase (ALT/SG PT) Alkaline Phosphatase 127 H Total Protein 6.2 Albumin 3.0 L Globulin 3.20 Albumin/Globulin Ratio 0.93 Triglycerides Level 255 H Cholesterol Level 124 LDL Cholesterol, 45 Calculated HDL Cholesterol 28 Cholesterol/HDL Ratio 4.4 Thyroid Stimulating 1.430 Hormone (TSH) Free Thyroxine Index 2.52 Thyroxine (T4) 5.5 Triiodothyronine (T3) 45.8 H Uptake Test 10/09/18 08:25 10/09/18 12:24 Bedside Glucose 197 184 Medications Medication Current Medications Aspirin (Halfprin) 81 mg DAILY PO Last administered on 10/09/18at 08:32; Admin Dose 81 MG; Start 10/09/18 at 09:00 Pantoprazole (Protonix Tab) 40 mg DAILY@0600 PO Last administered on 10/09/18at 05:27; Admin Dose 40 MG; Start 10/09/18 at 06:00 IV Flush (NS 3 ml) 3 ml PER PROTOCOL IV ; Start 10/08/18 at 15:00 Ondansetron HCl (Zofran Inj) 4 mg Q6H PRN IV NAUSEA/VOMITING; Start 10/08/18 at 15:00 Acetaminophen (Tylenol Tab) 650 mg Q6H PRN PO .PAIN 1-3 OR TEMP; Start 10/08/18 at 15:00 Acetaminophen (Tylenol Supp) 650 mg Q6H PRN [place] .PAIN 1-3 OR TEMP; Start 10/08/18 at 15:00 Acetaminophen/ Hydrocodone Bitart ([place] (5/325)) 1 tab Q6H PRN PO .MOD PAIN 4- 6 Last administered on 10/09/18at 12:32; Admin Dose 1 TAB; Start 10/08/18 at 15:00 Acetaminophen/ Hydrocodone Bitart ([place] (5/325)) 2 tab Q6H PRN PO .SEVERE PAIN 7-10; Start 10/08/18 at 15:00 Morphine Sulfate (morphine) 2 mg Q4H PRN IV .SEVERE PAIN 7-10 Last administered on 10/08/18at 20:41; Admin Dose 2 MG; Start 10/08/18 at 15:00 Docusate Sodium (Colace) 100 mg Q12H PRN PO .CONSTIPATION; Start 10/08/18 at 15:00 Magnesium Hydroxide (Milk Of Mag) 30 ml DAILY PRN PO .CONSTIPATION; Start 10/08/18 at 15:00 Bisacodyl (Dulcolax Supp) 10 mg DAILY PRN [place] .CONSTIPATION; Start 10/08/18 at 15:00 Cefepime HCl 50 ml @ 100 mls/hr Q12 IVPB Last administered on 10/09/18at 09:45; Admin Dose 100 MLS/HR; Start 10/08/18 at 21:00 Vancomycin HCl (Vanco Iv Per Pharmacy) VANCOMYCIN PER PHARMACY PER PROTOCOL XX ; Start 10/08/18 at 16:00 Diagnostic Test (Pha) (Accu-Chek) XX Last administered on 10/09/18at 02: 21; Admin Dose 1 EA; Start 10/09/18 at 02:00 Insulin Glargine (Lantus) 22 units DAILY@2000 SC Last administered on 10/08/18 20:34; Admin Dose 22 UNITS; Start 10/08/18 at 20:00 Insulin Aspart (Novolog Insulin Pen) NOVOLOG *MILD* ALGORITHM WITH MEALS BEDTIME SC Last administered on 10/09/18 12:31; Admin Dose 2 UNIT; Start 10/08/18 at 18:00 Sodium Chloride 1,000 ml @ 75 mls/hr [id number] IV Last administered on 10/09/18 05:28; Admin Dose 75 MLS/HR; Start 10/08/18 at 16:00 Miscellaneous Information 1 ea NOTE XX ; Start 10/08/18 at 16:30 Glucose (Glutose) 15 gm Q15M PRN PO DECREASED GLUCOSE; Start 10/08/18 at 16:30 Glucose (Glutose) 22.5 gm Q15M PRN PO DECREASED GLUCOSE; Start 10/08/18 at 16:30 Dextrose (D50w Syringe) 25 ml Q15M PRN IV DECREASED GLUCOSE; Start 10/08/18 at 16:30 Dextrose (D50w Syringe) 50 ml Q15M PRN IV DECREASED GLUCOSE; Start 10/08/18 at 16:30 Glucagon (Glucagen) 1 mg Q15M PRN IM DECREASED GLUCOSE; Start 10/08/18 at 16:30 Glucose (Glutose) 15 gm Q15M PRN BUCCAL DECREASED GLUCOSE; Start 10/08/18 at 16:30 Vancomycin HCl 1.75 gm/Sodium Chloride 500 ml @ 125 mls/hr Q12H IVPB Last administered on 10/09/18 05:27; Admin Dose 125 MLS/HR; Start 10/09/18 at 05:00 Atorvastatin Calcium (Lipitor) 80 mg QHS PO Last administered on 10/08/18 20:32; Admin Dose 80 MG; Start 10/08/18 at 21:00 Fish Oil (Fish Oil) 2,000 mg BID PO Last administered on 10/09/18 08:32; Admin Dose 2,000 MG; Start 10/08/18 at 21:00 Nateglinide (Starlix) 120 mg AC MEALS PO Last administered on 6/6/19at 12:32; Admin Dose 120 MG; Start 10/08/18 at 18:30 Metformin HCl (Glucophage) 850 mg BID WITH MEALS PO Last administered on 10/09/18at 08:32; Admin Dose 850 MG; Start 10/08/18 at 18:00 Miscellaneous Information (*Rx Drug Level Order Reminder*) 1 0400 ONCE XX ; Start 10/10/18 at 04:00; Stop 10/10/18 at 04:01 MANOLO ARREDONDO MD Oct 09, 2018 13:48
--- NOTE | 2018-10-09 13:57 | CONS ---
Assessment/Plan Assessment/Plan Hospital Course (Demo Recall) Patient is awake looks comfortable denies pain no fevers overnight WBC 14 platelets 298 no shift BUN 15 creatinine 0.73 Blood cultures since admission negative Wound culture of the left foot on September 22 grew E. coli ESBL alphahemolytic strep species and Corynebacterium species. Right foot wound culture also grew E. coli ESBL and coag negative staph species Antimicrobials: Vancomycin, cefepime Physical examination: Well-developed obese middle-aged man who is awake in no distress. Head atraumatic normocephalic neck is supple chest rise symmetrical breath sounds clear heart S1-S2 abdomen soft bowel sounds present extremities with bilateral lower extremities dressings intact Assessment: 1. Left foot osteomyelitis/Charcot foot deformity 2. Uncontrolled diabetes Plan: Patient remains stable, change cefepime to meropenem, continue vancomycin, follow podiatry recommendations, anticipate discharge on current antibiotics for 6 weeks Consultation Date/Type/Reason Admit Date/Time Oct 08, 2018 at 12:45 Initial Consult Date 10/08/18 Type of Consult id Requesting Provider: ANNA ARVIZU NP Date/Time of Note DATE: 10/09/18 TIME: 13:57 Exam/Review of Systems Exam Vitals Vital Signs Date Temp Pulse Resp B/P (MAP) Pulse Ox O2 O2 Flow FiO2 Time Delivery Rate 10/09/18 98.4 86 20 121/76 97 09:03 (91) 10/08/18 Room Air 20:00 Intake and Output 10/08/18 10/08/18 10/09/18 1515:00 23:00 07:00 IntakeIntake Total 50 ml 985 ml 925 ml OutputOutput Total 550 ml BalanceBalance 50 ml 435 ml 925 ml Results Result Diagram: 10/09/18 0507 10/09/18 0507 Results 24hrs Laboratory Tests Test 10/08/18 14:05 10/08/18 14:25 10/08/18 16:00 10/08/18 17:30 Bedside Glucose 342 H 221 H Lactic Acid Level 0.9 1.1 Test 10/08/18 19:10 10/08/18 20:31 10/09/18 02:08 10/09/18 05:07 Urine Color YELLOW Urine Clarity CLEAR Urine pH 5.0 Urine Specific [place] 1.028 Urine Ketones NEGATIVE Urine Nitrite NEGATIVE Urine Bilirubin NEGATIVE Urine Urobilinogen NEGATIVE Urine Leukocyte Esterase NEGATIVE Urine Hemoglobin NEGATIVE Urine Glucose 3+ H Urine Total Protein NEGATIVE Bedside Glucose 196 141 White Blood Count 14.0 #H Red Blood Count 4.23 L Hemoglobin 12.0 L Hematocrit 36.3 L Mean Corpuscular Volume 85.8 Mean Corpuscular 28.4 L Hemoglobin Mean Corpuscular 33.1 Hemoglobin Concent Red Cell Distribution 13.7 Width Platelet Count 298 Mean Platelet Volume 10.7 H Immature Granulocytes % 0.800 H Neutrophils % 75.4 Lymphocytes % 16.6 Monocytes % 4.4 Eosinophils % 2.4 Basophils % 0.4 Nucleated Red Blood 0.0 Cells % Immature Granulocytes # 0.110 H Neutrophils # 10.6 H Lymphocytes # 2.3 Monocytes # 0.6 Eosinophils # 0.3 Basophils # 0.1 Nucleated Red Blood 0.0 Cells # Sodium Level 139 Potassium Level 3.8 Chloride Level 107 Carbon Dioxide Level 24 Anion Gap 8 Blood Urea Nitrogen 15 Creatinine 0.73 Est Glomerular Filtrat > 60 Rate mL/min Glucose Level 150 # Hemoglobin A1c 12.2 H Calcium Level 8.4 Phosphorus Level 3.5 Magnesium Level 1.8 Total Bilirubin 0.6 Direct Bilirubin 0.00 Indirect Bilirubin 0.6 Aspartate Amino 14 L Transf (AST/SGOT) Alanine 25 Aminotransferase (ALT/SG PT) Alkaline Phosphatase 127 H Total Protein 6.2 Albumin 3.0 L Globulin 3.20 Albumin/Globulin Ratio 0.93 Triglycerides Level 255 H Cholesterol Level 124 LDL Cholesterol, 45 Calculated HDL Cholesterol 28 Cholesterol/HDL Ratio 4.4 Thyroid Stimulating 1.430 Hormone (TSH) Free Thyroxine Index 2.52 Thyroxine (T4) 5.5 Triiodothyronine (T3) 45.8 H Uptake Test 10/09/18 08:25 10/09/18 12:24 Bedside Glucose 197 184 Medications Medication Current Medications Aspirin (Halfprin) 81 mg DAILY PO Last administered on 10/09/18at 08:32; Admin Dose 81 MG; Start 10/09/18 at 09:00 Pantoprazole (Protonix Tab) 40 mg DAILY@0600 PO Last administered on 10/09/18at 05:27; Admin Dose 40 MG; Start 10/09/18 at 06:00 IV Flush (NS 3 ml) 3 ml PER PROTOCOL IV ; Start 10/08/18 at 15:00 Ondansetron HCl (Zofran Inj) 4 mg Q6H PRN IV NAUSEA/VOMITING; Start 10/08/18 at 15:00 Acetaminophen (Tylenol Tab) 650 mg Q6H PRN PO .PAIN 1-3 OR TEMP; Start 10/08/18 at 15:00 Acetaminophen (Tylenol Supp) 650 mg Q6H PRN [place] .PAIN 1-3 OR TEMP; Start 10/08/18 at 15:00 Acetaminophen/ Hydrocodone Bitart ([place] (5/325)) 1 tab Q6H PRN PO .MOD PAIN 4- 6 Last administered on 10/09/18at 12:32; Admin Dose 1 TAB; Start 10/08/18 at 15:00 Acetaminophen/ Hydrocodone Bitart ([place] (5/325)) 2 tab Q6H PRN PO .SEVERE PAIN 7-10; Start 10/08/18 at 15:00 Morphine Sulfate (morphine) 2 mg Q4H PRN IV .SEVERE PAIN 7-10 Last administered on 10/08/18at 20:41; Admin Dose 2 MG; Start 10/08/18 at 15:00 Docusate Sodium (Colace) 100 mg Q12H PRN PO .CONSTIPATION; Start 10/08/18 at 15:00 Magnesium Hydroxide (Milk Of Mag) 30 ml DAILY PRN PO .CONSTIPATION; Start at 15:00 Bisacodyl (Dulcolax Supp) 10 mg DAILY PRN [place] .CONSTIPATION; Start 10/08/18 at 15:00 Cefepime HCl 50 ml @ 100 mls/hr Q12 IVPB Last administered on 10/09/18at 09:45; Admin Dose 100 MLS/HR; Start 10/08/18 at 21:00 Vancomycin HCl (Vanco Iv Per Pharmacy) VANCOMYCIN PER PHARMACY PER PROTOCOL XX ; Start 10/08/18 at 16:00 Diagnostic Test (Pha) (Accu-Chek) 1 ea 02 XX Last administered on 10/09/18 02:21; Admin Dose 1 EA; Start 10/09/18 at 02:00 Insulin Aspart (Novolog Insulin Pen) NOVOLOG *MILD* ALGORITHM WITH MEALS BEDTIME SC Last administered on 10/09/18 12:31; Admin Dose 2 UNIT; Start 10/08/18 at 18:00 Sodium Chloride 1,000 ml @ 75 mls/hr [id number] IV Last administered on 6/6/19at 05:28; Admin Dose 75 MLS/HR; Start 10/08/18 at 16:00 Miscellaneous Information 1 ea NOTE XX ; Start 10/08/18 at 16:30 Glucose (Glutose) 15 gm Q15M PRN PO DECREASED GLUCOSE; Start 10/08/18 at 16:30 Glucose (Glutose) 22.5 gm Q15M PRN PO DECREASED GLUCOSE; Start 10/08/18 at 16:30 Dextrose (D50w Syringe) 25 ml Q15M PRN IV DECREASED GLUCOSE; Start 10/08/18 at 16:30 Dextrose (D50w Syringe) 50 ml Q15M PRN IV DECREASED GLUCOSE; Start 10/08/18 at 16:30 Glucagon (Glucagen) 1 mg Q15M PRN IM DECREASED GLUCOSE; Start 10/08/18 at 16:30 Glucose (Glutose) 15 gm Q15M PRN BUCCAL DECREASED GLUCOSE; Start 10/08/18 at 16: 30 Vancomycin HCl 1.75 gm/Sodium Chloride 500 ml @ 125 mls/hr Q12H IVPB Last administered on 10/09/18at 05:27; Admin Dose 125 MLS/HR; Start 10/09/18 at 05:00 Atorvastatin Calcium (Lipitor) 80 mg QHS PO Last administered on 10/08/18at 20:32; Admin Dose 80 MG; Start 10/08/18 at 21:00 Fish Oil (Fish Oil) 2,000 mg BID PO Last administered on 10/09/18at 08:32; Admin Dose 2,000 MG; Start 10/08/18 at 21:00 Nateglinide (Starlix) 120 mg AC MEALS PO Last administered on 10/09/18at 12:32; Admin Dose 120 MG; Start 10/08/18 at 18:30 Metformin HCl (Glucophage) 850 mg BID WITH MEALS PO Last administered on 9at 08:32; Admin Dose 850 MG; Start 10/08/18 at 18:00 Miscellaneous Information (*Rx Drug Level Order Reminder*) 1 0400 ONCE XX ; Start 10/10/18 at 04:00; Stop 10/10/18 at 04:01 Insulin Glargine (Lantus) 25 units DAILY@2000 SC ; Start 10/09/18 at 20:00 SOREN DYER NP Oct 09, 2018 13:57
--- NOTE | 2018-10-09 14:40 | PN ---
Date/Time of Note Date/Time of Note DATE: 10/09/18 TIME: 14:36 Assessment/Plan VTE Prophylaxis Risk score (from Ns)>0 risk: 1 SCD applied (from Ns): Yes Pharmacological prophylaxis: NA/contraindicated Pharm contraindication: low risk/ambulating Lines/Catheters IV Catheter Type (from Nrsg): PICC Line Central line still needed: Yes Urinary Cath still in place: No Assessment/Plan Hospital Course Assessment and plan 1. Infected left foot diabetic ulcer. -Validation Leader and infectious disease engagement quality consultant following - Continue with antibiotics 2. Poorly controlled diabetes. -A1c: 12.2. - antidiabetic regimen per general machinist. 3. History of charcot left foot. - Continue with pain management. 4. Obesity. - Weight reduction was advised. 5. History of cigarette smoking. -Cessation advised. Disposition and plan. Continue with antibiotics. Follow-up with case management for discharge with [facility] with antibiotic regimen. DC when cleared by consults. Discussed plan of care with Dr. Dykes Result Diagram: 10/09/18 0507 10/09/18 0507 Results 24hrs Laboratory Tests Test 10/08/18 16:00 10/08/18 17:30 10/08/18 19:10 10/08/18 20:31 Lactic Acid Level 1.1 Bedside Glucose 221 H 196 Urine Color YELLOW Urine Clarity CLEAR Urine pH 5.0 Urine Specific [place] 1.028 Urine Ketones NEGATIVE Urine Nitrite NEGATIVE Urine Bilirubin NEGATIVE Urine Urobilinogen NEGATIVE Urine Leukocyte Esterase NEGATIVE Urine Hemoglobin NEGATIVE Urine Glucose 3+ H Urine Total Protein NEGATIVE Test 10/09/18 02:08 10/09/18 05:07 10/09/18 08:25 10/09/18 12:24 Bedside Glucose 141 197 184 White Blood Count 14.0 #H Red Blood Count 4.23 L Hemoglobin 12.0 L Hematocrit 36.3 L Mean Corpuscular Volume 85.8 Mean Corpuscular 28.4 L Hemoglobin Mean Corpuscular 33.1 Hemoglobin Concent Red Cell Distribution 13.7 Width Platelet Count 298 Mean Platelet Volume 10.7 H Immature Granulocytes % 0.800 H Neutrophils % 75.4 Lymphocytes % 16.6 Monocytes % 4.4 Eosinophils % 2.4 Basophils % 0.4 Nucleated Red Blood 0.0 Cells % Immature Granulocytes # 0.110 H Neutrophils # 10.6 H Lymphocytes # 2.3 Monocytes # 0.6 Eosinophils # 0.3 Basophils # 0.1 Nucleated Red Blood 0.0 Cells # Sodium Level 139 Potassium Level 3.8 Chloride Level 107 Carbon Dioxide Level 24 Anion Gap 8 Blood Urea Nitrogen 15 Creatinine 0.73 Est Glomerular Filtrat > 60 Rate mL/min Glucose Level 150 # Hemoglobin A1c 12.2 H Calcium Level 8.4 Phosphorus Level 3.5 Magnesium Level 1.8 Total Bilirubin 0.6 Direct Bilirubin 0.00 Indirect Bilirubin 0.6 Aspartate Amino 14 L Transf (AST/SGOT) Alanine 25 Aminotransferase (ALT/SG PT) Alkaline Phosphatase 127 H Total Protein 6.2 Albumin 3.0 L Globulin 3.20 Albumin/Globulin Ratio 0.93 Triglycerides Level 255 H Cholesterol Level 124 LDL Cholesterol, 45 Calculated HDL Cholesterol 28 Cholesterol/HDL Ratio 4.4 Thyroid Stimulating 1.430 Hormone (TSH) Free Thyroxine Index 2.52 Thyroxine (T4) 5.5 Triiodothyronine (T3) 45.8 H Uptake Subjective 24 Hr Interval Summary Free Text/Dictation Comfortable present. No specific complaints. Exam/Review of Systems Exam Vitals Vital Signs Date Temp Pulse Resp B/P (MAP) Pulse Ox O2 O2 Flow FiO2 Time Delivery Rate 10/09/18 98.4 86 20 121/76 97 09:03 (91) 10/08/18 Room Air 20:00 Intake and Output 10/08/18 10/08/18 10/09/18 1515:00 23:00 07:00 IntakeIntake Total 50 ml 985 ml 925 ml OutputOutput Total 550 ml BalanceBalance 50 ml 435 ml 925 ml Exam Constitutional: alert, oriented, other (obese) Psych: no complaints Head: normocephalic Eyes: nl conjunctiva Neck: supple, non-tender Cardiovascular: regular rate and rhythm Gastrointestinal: soft, non-tender Musculoskeletal: other (Amputation right foot first toe, amputation left foot second toe) Neurological: DRYWALL STRIPPER II-XII intact, nl mental status Skin: other (infectious wound left foot with dressing in place), picc line left arm Results Results 24hrs Laboratory Tests Test 10/08/18 16:00 10/08/18 17:30 10/08/18 19:10 10/08/18 20:31 Lactic Acid Level 1.1 Bedside Glucose 221 H 196 Urine Color YELLOW Urine Clarity CLEAR Urine pH 5.0 Urine Specific [place] 1.028 Urine Ketones NEGATIVE Urine Nitrite NEGATIVE Urine Bilirubin NEGATIVE Urine Urobilinogen NEGATIVE Urine Leukocyte Esterase NEGATIVE Urine Hemoglobin NEGATIVE Urine Glucose 3+ H Urine Total Protein NEGATIVE Test 10/09/18 02:08 10/09/18 05:07 10/09/18 08:25 10/09/18 12:24 Bedside Glucose 141 197 184 White Blood Count 14.0 #H Red Blood Count 4.23 L Hemoglobin 12.0 L Hematocrit 36.3 L Mean Corpuscular Volume 85.8 Mean Corpuscular 28.4 L Hemoglobin Mean Corpuscular 33.1 Hemoglobin Concent Red Cell Distribution 13.7 Width Platelet Count 298 Mean Platelet Volume 10.7 H Immature Granulocytes % 0.800 H Neutrophils % 75.4 Lymphocytes % 16.6 Monocytes % 4.4 Eosinophils % 2.4 Basophils % 0.4 Nucleated Red Blood 0.0 Cells % Immature Granulocytes # 0.110 H Neutrophils # 10.6 H Lymphocytes # 2.3 Monocytes # 0.6 Eosinophils # 0.3 Basophils # 0.1 Nucleated Red Blood 0.0 Cells # Sodium Level 139 Potassium Level 3.8 Chloride Level 107 Carbon Dioxide Level 24 Anion Gap 8 Blood Urea Nitrogen 15 Creatinine 0.73 Est Glomerular Filtrat > 60 Rate mL/min Glucose Level 150 # Hemoglobin A1c 12.2 H Calcium Level 8.4 Phosphorus Level 3.5 Magnesium Level 1.8 Total Bilirubin 0.6 Direct Bilirubin 0.00 Indirect Bilirubin 0.6 Aspartate Amino 14 L Transf (AST/SGOT) Alanine 25 Aminotransferase (ALT/SG PT) Alkaline Phosphatase 127 H Total Protein 6.2 Albumin 3.0 L Globulin 3.20 Albumin/Globulin Ratio 0.93 Triglycerides Level 255 H Cholesterol Level 124 LDL Cholesterol, 45 Calculated HDL Cholesterol 28 Cholesterol/HDL Ratio 4.4 Thyroid Stimulating 1.430 Hormone (TSH) Free Thyroxine Index 2.52 Thyroxine (T4) 5.5 Triiodothyronine (T3) 45.8 H Uptake Medications Medication Current Medications Aspirin (Halfprin) 81 mg DAILY PO Last administered on 10/09/18at 08:32; Admin Dose 81 MG; Start 10/09/18 at 09:00 Pantoprazole (Protonix Tab) 40 mg DAILY@0600 PO Last administered on 10/09/18at 05:27; Admin Dose 40 MG; Start 10/09/18 at 06:00 IV Flush (NS 3 ml) 3 ml PER PROTOCOL IV ; Start 10/08/18 at 15:00 Ondansetron HCl (Zofran Inj) 4 mg Q6H PRN IV NAUSEA/VOMITING; Start 10/08/18 at 15:00 Acetaminophen (Tylenol Tab) 650 mg Q6H PRN PO .PAIN 1-3 OR TEMP; Start 10/08/18 at 15:00 Acetaminophen (Tylenol Supp) 650 mg Q6H PRN [place] .PAIN 1-3 OR TEMP; Start 10/08/18 at 15:00 Acetaminophen/ Hydrocodone Bitart ([place] (5/325)) 1 tab Q6H PRN PO .MOD PAIN 4- 6 Last administered on 10/09/18at 12:32; Admin Dose 1 TAB; Start 10/08/18 at 15:00 Acetaminophen/ Hydrocodone Bitart ([place] (5/325)) 2 tab Q6H PRN PO .SEVERE PAIN 7-10; Start 10/08/18 at 15:00 Morphine Sulfate (morphine) 2 mg Q4H PRN IV .SEVERE PAIN 7-10 Last administered on 10/08/18at 20:41; Admin Dose 2 MG; Start 10/08/18 at 15:00 Docusate Sodium (Colace) 100 mg Q12H PRN PO .CONSTIPATION; Start 10/08/18 at 15:00 Magnesium Hydroxide (Milk Of Mag) 30 ml DAILY PRN PO .CONSTIPATION; Start 10/08/18 at 15:00 Bisacodyl (Dulcolax Supp) 10 mg DAILY PRN [place] .CONSTIPATION; Start 10/08/18 at 15:00 Vancomycin HCl (Vanco Iv Per Pharmacy) VANCOMYCIN PER PHARMACY PER PROTOCOL XX ; Start 10/08/18 at 16:00 Diagnostic Test (Pha) (Accu-Chek) 1 ea 02 XX Last administered on 10/09/18at 02:21; Admin Dose 1 EA; Start 10/09/18 at 02:00 Insulin Aspart (Novolog Insulin Pen) NOVOLOG *MILD* ALGORITHM WITH MEALS BEDTIME SC Last administered on 10/09/18at 12:31; Admin Dose 2 UNIT; Start 10/08/18 at 18:00 Sodium Chloride 1,000 ml @ 75 mls/hr [id number] IV Last administered on 10/09/18at 05:28; Admin Dose 75 MLS/HR; Start 10/08/18 at 16:00 Miscellaneous Information 1 ea NOTE XX ; Start 10/08/18 at 16:30 Glucose (Glutose) 15 gm Q15M PRN PO DECREASED GLUCOSE; Start 10/08/18 at 16:30 Glucose (Glutose) 22.5 gm Q15M PRN PO DECREASED GLUCOSE; Start 10/08/18 at 16:30 Dextrose (D50w Syringe) 25 ml Q15M PRN IV DECREASED GLUCOSE; Start 10/08/18 at 16:30 Dextrose (D50w Syringe) 50 ml Q15M PRN IV DECREASED GLUCOSE; Start 10/08/18 at 16:30 Glucagon (Glucagen) 1 mg Q15M PRN IM DECREASED GLUCOSE; Start 10/08/18 at 16:30 Glucose (Glutose) 15 gm Q15M PRN BUCCAL DECREASED GLUCOSE; Start 10/08/18 at 16:30 Vancomycin HCl 1.75 gm/Sodium Chloride 500 ml @ 125 mls/hr Q12H IVPB Last administered on 10/09/18 05:27; Admin Dose 125 MLS/HR; Start 10/09/18 at 05:00 Atorvastatin Calcium (Lipitor) 80 mg QHS PO Last administered on 10/08/18at 20:32; Admin Dose 80 MG; Start 10/08/18 at 21:00 Fish Oil (Fish Oil) 2,000 mg BID PO Last administered on 10/09/18at 08:32; Admin Dose 2,000 MG; Start 10/08/18 at 21:00 Nateglinide (Starlix) 120 mg AC MEALS PO Last administered on 10/09/18at 12:32; Admin Dose 120 MG; Start 10/08/18 at 18:30 Metformin HCl (Glucophage) 850 mg BID WITH MEALS PO Last administered on 10/09/18at 08:32; Admin Dose 850 MG; Start 10/08/18 at 18:00 Miscellaneous Information (*Rx Drug Level Order Reminder*) 1 0400 ONCE XX ; Start 10/10/18 at 04:00; Stop 10/10/18 at 04:01 Insulin Glargine (Lantus) 25 units DAILY@2000 SC ; Start 10/09/18 at 20:00 Meropenem/Sodium Chloride 50 ml @ 100 mls/hr Q8 IVPB ; Start 10/09/18 at 14:00 ANNA ARVIZU NP Oct 09, 2018 14:39
[2018-10-09] MEDS: MEROPENEM 1 GM/50ML(PMX) 50 ML IVPB SCH ×2 (15:13→22:12)
[2018-10-09 15:50] VITALS: BP 104/61; PULSE 82; RESP 20
[2018-10-09 20:00] VITALS: BP 138/81; PULSE 81; RESP 20
[2018-10-09] MEDS ORDERED: INSULIN GLARGINE [LANTus] (100 UNITS/ML) SYG SC SCH (20:00)
[2018-10-09] MEDS: ATORVASTATIN 80 MG TAB PO SCH (20:53)
[2018-10-10 02:00] VITALS: BP 111/71; PULSE 82; RESP 19
[2018-10-10] MEDS: ACCU-CHEK XX SCH (02:22)
[2018-10-10] MEDS ORDERED: ALTEPLASE (CATHFLO) 2 MG INJ CATHETER PRN (04:30)
[2018-10-10] MEDS: PANTOPRAZOLE (EC) 40 MG TAB PO SCH (05:23)
[2018-10-10] MEDS: MEROPENEM 1 GM/50ML(PMX) 50 ML IVPB SCH ×2 (06:08→14:26)
[2018-10-10] MEDS: VANCOMYCIN HCL 1.75 GM in SOD CHLORIDE 0.9% 500 ML IVPB SCH (06:53)
[2018-10-10] MEDS: SOD CHLORIDE 0.9% 1,000 ML IV SCH ×2 (08:00→20:47)
[2018-10-10 08:11] VITALS: BP 116/65; PULSE 77; RESP 18
[2018-10-10] MEDS: ASPIRIN (EC) 81 MG TAB PO SCH (08:39)
[2018-10-10] MEDS: NATEGLINIDE 120 MG TAB PO SCH ×3 (08:39→17:40)
[2018-10-10] MEDS: FISH OIL 1,000 MG CAP PO SCH ×2 (08:39→20:44)
[2018-10-10] MEDS: metFORMIN 850 MG TAB PO SCH ×2 (08:40→17:40)
[2018-10-10] MEDS: INSULIN ASPART [NOVOLOG] 3 ML PEN SC SCH ×4 (08:54→20:47)
--- NOTE | 2018-10-10 09:42 | PDOCDIS ---
Discharge Instructions DIAGNOSIS Discharge Diagnosis 1. Infected left foot diabetic ulcer. 2. Poorly controlled diabetes. -A1c: 12.2. 3. History of charcot left foot 4. Obesity 5. History of cigarette smoking CONDITION [id number] Patient Condition: [id number] Stable HOME CARE INSTRUCTIONS: [id number] Diet Instructions: [id number] Low Fat /Cholesterol FOLLOW UP/APPOINTMENTS Follow-up Plan 1. Follow up with your forest examiner Dr. Dumont in one week 2. Follow up with Dr. Lc Fletcher in 1-2 weeks for further management and care of your diabetes ANNA ARVIZU NP Oct 10, 2018 09:42
[2018-10-10] MEDS ORDERED: INSU100I33 SC (12:41)
[2018-10-10] MEDS ORDERED: Vancomycin Iv Per Pharmacy XX (12:41)
[2018-10-10] MEDS ORDERED: NATE120T PO (12:41)
[2018-10-10] MEDS ORDERED: OMEG100024 PO (12:41)
[2018-10-10] MEDS ORDERED: ATOR-2 PO (12:41)
[2018-10-10] MEDS ORDERED: METF-480 PO (12:41)
[2018-10-10] MEDS ORDERED: MERO1VIA3 IV (12:41)
[2018-10-10] MEDS ORDERED: VANCOMYCIN HCL 1.5 GM in SOD CHLORIDE 0.9% 250 ML IVPB SCH ×2 (13:00→15:00)
[2018-10-10] MEDS: HYDROCODONE/APAP (5/325) TAB PO PRN ×2 (14:51→21:58)
[2018-10-10 15:13] VITALS: BP 118/72; PULSE 82; RESP 20
--- NOTE | 2018-10-10 18:10 | CONS ---
Assessment/Plan Assessment/Plan Hospital Course (Demo Recall) 1200 No changes, looks comfortable Blood cultures since admission negative Wound culture of the left foot on September 22 grew E. coli ESBL alphahemolytic strep species and Corynebacterium species. Right foot wound culture also grew E. coli ESBL and coag negative staph species Antimicrobials: Vancomycin, Merrem Physical examination: Well-developed obese middle-aged man who is awake in no distress. Head atraumatic normocephalic neck is supple chest rise symmetrical breath sounds clear heart S1-S2 abdomen soft bowel sounds present extremities with bilateral lower extremities dressings intact Assessment: 1. Left foot osteomyelitis/Charcot foot deformity 2. Uncontrolled diabetes Plan: Patient remains stable, anticipate discharge on current antibiotics for 6 weeks, f/u podiatry rec-s Consultation Date/Type/Reason Admit Date/Time Oct 08, 2018 at 12:45 Initial Consult Date 10/08/18 Type of Consult id Requesting Provider: ANNA ARVIZU NP Date/Time of Note DATE: 10/10/18 TIME: 18:09 Exam/Review of Systems Exam Vitals Vital Signs Date Temp Pulse Resp B/P (MAP) Pulse Ox O2 O2 Flow FiO2 Time Delivery Rate 10/10/18 98.3 82 20 118/72 98 15:13 (87) 10/08/18 Room Air 20:00 Intake and Output 10/09/18 10/09/18 10/10/18 1515:00 23:00 07:00 IntakeIntake Total 1030 ml 1440 ml 850 ml OutputOutput Total 350 ml 300 ml BalanceBalance 1030 ml 1090 ml 550 ml Results Result Diagram: 10/10/18 0418 10/10/18 0418 Results 24hrs Laboratory Tests Test 10/09/18 20:54 10/10/18 02:20 10/10/18 04:18 10/10/18 08:37 Bedside Glucose 195 208 241 H White Blood Count 10.7 # Red Blood Count 4.12 L Hemoglobin 11.9 L Hematocrit 35.6 L Mean Corpuscular Volume 86.4 Mean Corpuscular 28.9 L Hemoglobin Mean Corpuscular 33.4 Hemoglobin Concent Red Cell Distribution 13.6 Width Platelet Count 313 Mean Platelet Volume 10.3 Immature Granulocytes % 0.800 H Neutrophils % 74.2 Lymphocytes % 16.4 Monocytes % 4.8 Eosinophils % 3.4 Basophils % 0.4 Nucleated Red Blood 0.0 Cells % Immature Granulocytes # 0.090 H Neutrophils # 7.9 H Lymphocytes # 1.8 Monocytes # 0.5 Eosinophils # 0.4 Basophils # 0.0 Nucleated Red Blood 0.0 Cells # Sodium Level 139 Potassium Level 4.0 Chloride Level 108 Carbon Dioxide Level 23 Anion Gap 8 Blood Urea Nitrogen 13 Creatinine 0.76 Est Glomerular Filtrat > 60 Rate mL/min Glucose Level 249 H Calcium Level 8.2 L Triglycerides Level 224 H Cholesterol Level 116 LDL Cholesterol, 51 Calculated HDL Cholesterol 20 L Cholesterol/HDL Ratio 5.8 Vancomycin Level Trough 8.9 L Test 10/10/18 12:47 10/10/18 12:48 10/10/18 17:38 Bedside Glucose 256 H 209 174 Medications Medication Current Medications Aspirin (Halfprin) 81 mg DAILY PO Last administered on 10/10/18at 08:39; Admin Dose 81 MG; Start 10/09/18 at 09:00 Pantoprazole (Protonix Tab) 40 mg DAILY@0600 PO Last administered on 10/10/18at 05:23; Admin Dose 40 MG; Start 10/09/18 at 06:00 IV Flush (NS 3 ml) 3 ml PER PROTOCOL IV ; Start 10/08/18 at 15:00 Ondansetron HCl (Zofran Inj) 4 mg Q6H PRN IV NAUSEA/VOMITING; Start 10/08/18 at 15:00 Acetaminophen (Tylenol Tab) 650 mg Q6H PRN PO .PAIN 1-3 OR TEMP; Start 10/08/18 at 15:00 Acetaminophen (Tylenol Supp) 650 mg Q6H PRN [place] .PAIN 1-3 OR TEMP; Start 10/08/18 at 15:00 Acetaminophen/ Hydrocodone Bitart ([place] (5/325)) 1 tab Q6H PRN PO .MOD PAIN 4- 6 Last administered on 10/10/18at 14:51; Admin Dose 1 TAB; Start 10/08/18 at 15:00 Acetaminophen/ Hydrocodone Bitart ([place] (5/325)) 2 tab Q6H PRN PO .SEVERE PAIN 7-10; Start 10/08/18 at 15:00 Morphine Sulfate (morphine) 2 mg Q4H PRN IV .SEVERE PAIN 7-10 Last administered on 10/08/18at 20:41; Admin Dose 2 MG; Start 10/08/18 at 15:00 Docusate Sodium (Colace) 100 mg Q12H PRN PO .CONSTIPATION; Start 10/08/18 at 15:00 Magnesium Hydroxide (Milk Of Mag) 30 ml DAILY PRN PO .CONSTIPATION; Start 10/08/18 at 15:00 Bisacodyl (Dulcolax Supp) 10 mg DAILY PRN [place] .CONSTIPATION; Start 10/08/18 at 15:00 Vancomycin HCl (Vanco Iv Per Pharmacy) VANCOMYCIN PER PHARMACY PER PROTOCOL XX ; Start 10/08/18 at 16:00 Diagnostic Test (Pha) (Accu-Chek) 1 ea 02 XX Last administered on 10/10/18at 02:22; Admin Dose 1 EA; Start 10/09/18 at 02:00 Insulin Aspart (Novolog Insulin Pen) NOVOLOG *MILD* ALGORITHM WITH MEALS BEDTIME SC Last administered on 10/10/18at 17:43; Admin Dose 1 UNIT; Start 10/08/18 at 18:00 Sodium Chloride 1,000 ml @ 75 mls/hr [id number] Last administered on 10/09/18at 05:28; Admin Dose 75 MLS/HR; Start 10/08/18 at 16:00 Miscellaneous Information 1 ea NOTE XX ; Start 10/08/18 at 16:30 Glucose (Glutose) 15 gm Q15M PRN PO DECREASED GLUCOSE; Start 10/08/18 at 16:30 Glucose (Glutose) 22.5 gm Q15M PRN PO DECREASED GLUCOSE; Start 10/08/18 at 16:30 Dextrose (D50w Syringe) 25 ml Q15M PRN IV DECREASED GLUCOSE; Start 10/08/18 at 16:30 Dextrose (D50w Syringe) 50 ml Q15M PRN IV DECREASED GLUCOSE; Start 10/08/18 at 16:30 Glucagon (Glucagen) 1 mg Q15M PRN IM DECREASED GLUCOSE; Start 10/08/18 at 16:30 Glucose (Glutose) 15 gm Q15M PRN BUCCAL DECREASED GLUCOSE; Start 10/08/18 at 16:30 Atorvastatin Calcium (Lipitor) 80 mg QHS PO Last administered on 10/09/18at 20:53; Admin Dose 80 MG; Start 10/08/18 at 21:00 Fish Oil (Fish Oil) 2,000 mg BID PO Last administered on 10/10/18 08:39; Admin Dose 2,000 MG; Start 10/08/18 at 21:00 Nateglinide (Starlix) 120 mg AC MEALS PO Last administered on 10/10/18at 17:40; Admin Dose 120 MG; Start 10/08/18 at 18:30 Metformin HCl (Glucophage) 850 mg BID WITH MEALS PO Last administered on 10/10/18at 17:40; Admin Dose 850 MG; Start 10/08/18 at 18:00 Meropenem/Sodium Chloride 50 ml @ 100 mls/hr Q8 IVPB Last administered on 10/10/18 14:26; Admin Dose 100 MLS/HR; Start 10/09/18 at 14:00 Alteplase, Recombinant (Cathflo (Activase)) 2 mg MAY REPEAT X1 PRN CATHETER IF CATHETER REMAINS OCCULUDED Last administered on 10/10/18 05:22; Admin Dose 2 MG; Start 10/10/18 at 04:30 Vancomycin HCl 1.5 gm/Sodium Chloride 250 ml @ 83.333 mls/ hr Q8H IVPB Last administered on 10/10/18at 15:22; Admin Dose 83.333 MLS/HR; Start 10/10/18 at 15:00 Miscellaneous Information (*Rx Drug Level Order Reminder*) 1 1400 ONCE XX ; Start 10/11/18 at 14:00; Stop 10/11/18 at 14:01 Insulin Glargine (Lantus) 28 units DAILY@2000 SC ; Start 10/10/18 at 20:00 SOREN DYER NP Oct 10, 2018 18:10
[2018-10-10] MEDS ORDERED: INSULIN GLARGINE [LANTus] (100 UNITS/ML) SYG SC SCH (20:00)
[2018-10-10 20:14] VITALS: BP 115/72; PULSE 81; RESP 18
[2018-10-10] MEDS: ATORVASTATIN 80 MG TAB PO SCH (20:44)
--- NOTE | 2018-10-15 16:56 | DS ---
Date/Time of Note Date/Time of Note DATE: 10/15/18 TIME: 16:52 Discharge Summary Admission/Discharge Info Admit Date/Time Oct 08, 2018 at 12:45 Discharge Date/Time Oct 10, 2018 at 22:08 Discharge Diagnosis 1. Infected left foot diabetic ulcer. 2. Poorly controlled diabetes. -A1c: 12.2. 3. History of charcot left foot 4. Obesity 5. History of cigarette smoking Patient Condition: Stable Consults 1. Dr. Joe Jimenez 2. Dr. Lc Fletcher 3. Dr. Napoleon Dumont Hx of Present Illness This is a 38-year-old male with history of left Charcot foot, hyperlipidemia, uncontrolled diabetes, chronic left foot wound (he reports 2 years), who came to [facility] after being referred by his patient monitor Dr. Dumont. Patient reports that he has had his recent left foot wound since June 2018. He reports that he has since been on ampicillin and was recently switched to cefepime. He states that he was receiving antibiotics at home and that roughly a week ago his PICC line was dislodged. Patient did notify his patient monitor and was seen by him reportedly on October 08, 2018. After evaluation it was decided for patient to go to the hospital for further management. Patient reports having left foot pain. He was seen with a white count of 18.3 on labs. His glucose was also uncontrolled sugar as high as 403. Urinalysis at this time is pending. He states that his blood sugar is consistently high. Hospital Course This is a 38-year-old male with history of left Charcot foot, hyperlipidemia, uncontrolled diabetes, chronic left foot wound (he reports 2 years), who came to [facility] after being referred by his patient monitor Dr. Dumont. Patient reports that he has had his recent left foot wound since June 2018. He reports that he has since been on ampicillin and was recently switched to cefepime. He states that he was receiving antibiotics at home and that roughly a week ago his PICC line was dislodged. Patient did notify his patient monitor and was seen by him reportedly on October 08, 2018. After evaluation it was decided for patient to go to the hospital for further management. Patient reports having left foot pain. He was seen with a white count of 18.3 on labs. His glucose was also uncontrolled sugar as high as 403. Patient was seen by his patient monitor and infectious disease physician he did place him on appropriate antibiotics. He did have PICC line placed again for plan for home antibiotics. He was noted with poorly uncontrolled diabetes with A1c of 12.2. Shell Molder was consulted and patient did have his antidiabetic regimen adjusted. He was provided with analgesics as needed and was advised for weight reduction for his obesity. Patient was a cigarette smoker and advised for cessation. During his course of stay he did improve. He was advised to compliance with his medical regimen. The plan of care was discussed with the patient and patient verbalizes understanding. On the day of discharge patient was in stable condition Discussed plan of care with Dr. Dykes Trego Meds Active Scripts Insulin Glargine,Hum.rec.anlog (Basaglar Kwikpen U-100) 100 Unit/1 Ml Insuln.pen, 28 UNIT SC QHS, #1 EA 1 Refill Prov:ANNA ARVIZU NP 10/10/18 Nateglinide* (Nateglinide*) 120 Mg Tablet, 120 MG PO AC MEALS, #90 TAB Prov:ANNA ARVIZU NP 10/10/18 Metformin* (Glucophage*) 850 Mg Tablet, 850 MG PO BID WITH MEALS, #60 TAB Prov:ANNA ARVIZU NP 10/10/18 [place]-3/Dha/Epa/Fish Oil (Fish Oil 1,000 mg Softgel) 1,000 Mg Capsule, 2000 MG PO BID, #60 CAP Prov:ANNA ARVIZU NP 10/10/18 Atorvastatin* (Atorvastatin*) 80 Mg Tablet, 80 MG PO QHS, #30 TAB Prov:ANNA ARVIZU NP 10/10/18 [Vancomycin Iv Per Pharmacy] 1 EA EACH No Conflict Check, 0 EA XX .PER PROTOCOL for 42 Days Prov:ANNA ARVIZU NP 10/10/18 Meropenem (MEROPENEM) 1 Gm Vial, 1 GM IV TID, #126 VIAL Prov:ANNA ARVIZU NP 10/10/18 Reported Medications Omeprazole* (Omeprazole*) 20 Mg Capsule., 20 MG PO DAILY, #30 CAP 10/08/18 Aspirin (Low Dose Aspirin) 81 Mg Tablet., 81 MG PO DAILY, #30 TAB 10/08/18 Discontinued Reported Medications Repaglinide* (Repaglinide*) 1 Mg Tablet, 1 MG PO AC MEALS, TAB 10/08/18 Atorvastatin* (Atorvastatin*) 40 Mg Tablet, 40 MG PO QHS, #30 TAB 10/08/18 Metformin Hcl* (Metformin Hcl*) 850 Mg Tablet, 850 MG PO WITH BREAKFAST DINNE, #60 TAB 10/08/18 Insulin Glargine,Hum.rec.anlog (Basaglar Kwikpen U-100) 100 Unit/1 Ml Insuln.pen, 33 UNIT SC QHS, EA 10/08/18 Glipizide* (Glipizide*) 10 Mg Tablet, 10 MG PO BID, TAB 10/08/18 Omeprazole* (Omeprazole*) 20 Mg Capsule.dr, 20 MG PO DAILY, #30 CAP 06/11/18 Aspirin* (Aspirin* EC) 81 Mg Tablet.dr, 81 MG PO DAILY, TAB 06/11/18 Discontinued Scripts Repaglinide* (Prandin*) 1 Mg Tablet, 0.5 MG PO WITH MEALS, #90 TAB Prov:MCKAY,OBIE V. REGULATORY AGENCY DIRECTOR 06/19/18 Metformin Hcl* (Metformin Hcl*) 850 Mg Tablet, 850 MG PO BID WITH MEALS, #60 TAB Prov:MCKAY,OBIE V. REGULATORY AGENCY DIRECTOR 06/19/18 [place]-3/Dha/Epa/Fish Oil (Fish Oil 1,000 mg Softgel) 1,000 Mg Capsule, 2000 MG PO BID, #60 CAP Prov:MCKAY,OBIE V. REGULATORY AGENCY DIRECTOR 06/19/18 Gemfibrozil* (Gemfibrozil*) 600 Mg Tablet, 600 MG PO BID, #30 TAB Prov:MCKAY,OBIE V. REGULATORY AGENCY DIRECTOR 06/19/18 Atorvastatin* (Atorvastatin*) 40 Mg Tablet, 40 MG PO DAILY@21, #30 TAB Prov:MCKAY,OBIE V. REGULATORY AGENCY DIRECTOR 06/19/18 Levofloxacin* (Levofloxacin*) 750 Mg Tablet, 750 MG PO DAILY@06, #40 TAB Prov:MCKAY,OBIE V. REGULATORY AGENCY DIRECTOR 06/19/18 Ampicillin (Ampicillin) 2 Gm Soln, 1 GM IJ Q8 for 40 Days Prov:MCKAY,OBIE V. REGULATORY AGENCY DIRECTOR 06/19/18 Insulin Glargine,Hum.rec.anlog (Basaglar Kwikpen U-100) 100 Unit/1 Ml Insuln.pen, 22 UNIT SC QHS, #1 EA Provide 100 lancet, 100 test strips, 100 32 gauge insulin pen needle. Blood sugar CHECK frequency 3 times a day. Prov:OBIE MCKAY NP 06/19/18 Follow-up Plan 1. Follow up with your patient monitor Dr. Dumont in one week 2. Follow up with Dr. Lc Fletcher in 1-2 weeks for further management and care of your diabetes Primary Care Provider Not On Staff Doctor Time spent on discharge: > 30 minutes ANNA ARVIZU NP Oct 15, 2018 16:56
== END 2018-10-10 22:08 | disposition home health service (06) | DRG 638 ==
LOC: E/R 11:18 → 2NE 12:45
PROVIDERS: ADMIT Internal Medicine; ATTEND Internal Medicine
DX: E11.621 Type 2 diabetes mellitus with foot ulcer (principal); M86.9 Osteomyelitis, unspecified; E11.65 Type 2 diabetes mellitus with hyperglycemia; E11.610 Type 2 diabetes mellitus with diabetic neuropathic arthropathy; E11.69 Type 2 diabetes mellitus with other specified complication; L97.519 Non-pressure chronic ulcer of other part of right foot with unspecified severity; Z72.0 Tobacco use; B96.20 Unspecified Escherichia coli [E. coli] as the cause of diseases classified elsewhere; B95.4 Other streptococcus as the cause of diseases classified elsewhere; Z16.12 Extended spectrum beta lactamase (ESBL) resistance; E78.2 Mixed hyperlipidemia; Z89.422 Acquired absence of other left toe(s); Z89.421 Acquired absence of other right toe(s)
CPT/HCPCS: 36415; 80048; 80053; 80061; 80202; 81003; 82962; 83036; 83605; 83735; 84100; 84436; 84443; 84479; 85025; 85610; 85651; 85730; 86140; 87070; 93005; 96365; 96375; J0692; J1170; J1815; J2185; J2270; J2405; J3370; J7030; J7040; J7050

== ENCOUNTER 2018-12-01 13:59 | Emergency (ER) | payer OTHER ==
[~2018-12-01] VITALS: Ht 180.3 cm; Wt 111.7 kg
[~2018-12-01 13:59] MED LIST changes: -ASPI-817 PO; +ASPI81TA52 PO; +ATOR-2 PO; -ATOR40TA68 PO; -GEMF600T8 PO; -LEVO750T8 PO; +MERO1VIA3 IV; +METF-480 PO; -METF850T13 PO; +NATE120T PO; -REPA1TAB14 PO; +Vancomycin Iv Per Pharmacy XX; -[UNRECOGNIZED DRUG - CODE] IJ
[2018-12-01 14:05] VITALS: Ht 180.3 cm; Wt 111.7 kg
--- NOTE | 2018-12-01 14:16 | EN ---
Date/Time of Note Date/Time of Note DATE: 12/01/18 TIME: 14:15 ER Progress Note 38-year-old male referred by primary doctor for evaluation of irritation around PICC line. Patient has a history of osteomyelitis and foot ulcer. No SIRS criteria. ED 2 appropriate for flushing, cleaning and/or replacement. XAVI GARCIA MD Dec 01, 2018 14:16
[2018-12-01] MEDS ORDERED: CEPH-443 PO (15:14)
[2018-12-01] MEDS ORDERED: MUPI22OI2 TOP (15:14)
--- NOTE | 2018-12-01 15:23 | ERD ---
ER Documentation Chief Complaint Chief Complaint LEFT UPPER ARM PICC LINE RED AND SWOLLEN HPI 38-year-old male presenting with PICC line to the left upper arm. Patient states that he has some redness and swelling noted around it. He has had this PICC line in the last month and a half and only noticed redness when the weather changed and became very warm. He states he has been sweating more than normal. He denies any severe pain and no fevers. He is receiving IV antibiotics for osteomyelitis and has been receiving antibiotics since June 2018. Denies other medical problems. NKDA. Surgical history denies. Social history denies ROS All systems reviewed and are negative except as per history of present illness. Medications Home Meds Active Scripts Mupirocin* (Bactroban*) 2% -22 Gram Oint...g., 1 APPLIC TOP BID for 7 Days, EA Prov:CONNOR MAHARAJ PA-C 12/01/18 Cephalexin* (Keflex*) 500 Mg Capsule, 500 MG PO QID for 7 Days, CAP Prov:CONNOR MAHARAJ PA-C 12/01/18 Insulin Glargine,Hum.rec.anlog (Basaglar Kwikpen U-100) 100 Unit/1 Ml Insuln.pen, 28 UNIT SC QHS, #1 EA 1 Refill Prov:ANNA ARVIZU NP 10/10/18 Nateglinide* (Nateglinide*) 120 Mg Tablet, 120 MG PO AC MEALS, #90 TAB Prov:ANNA ARVIZU NP 10/10/18 Metformin* (Glucophage*) 850 Mg Tablet, 850 MG PO BID WITH MEALS, #60 TAB Prov:ANNA ARVIZU NP 10/10/18 [place]-3/Dha/Epa/Fish Oil (Fish Oil 1,000 mg Softgel) 1,000 Mg Capsule, 2000 MG PO BID, #60 CAP Prov:ANNA ARVIZU NP 10/10/18 Atorvastatin* (Atorvastatin*) 80 Mg Tablet, 80 MG PO QHS, #30 TAB Prov:ANNA ARVIZU NP 10/10/18 [Vancomycin Iv Per Pharmacy] 1 EA EACH No Conflict Check, 0 EA XX .PER PROTOCOL for 42 Days Prov:ANNA ARVIZU NP 10/10/18 Meropenem (MEROPENEM) 1 Gm Vial, 1 GM IV TID, #126 VIAL Prov:ANNA ARVIZU RAILWAY SIGNAL ELECTRICIAN 10/10/18 Reported Medications Omeprazole* (Omeprazole*) 20 Mg Capsule.dr, 20 MG PO DAILY, #30 CAP 10/08/18 Aspirin (Low Dose Aspirin) 81 Mg Tablet.dr, 81 MG PO DAILY, #30 TAB 10/08/18 Allergies Allergies: Coded Allergies: No Known Allergies (Verified Allergy, Unknown, 10/08/18) NO KNOWN ALLERGIES PMhx/Soc History of Surgery: Yes (Amputation of toe on Right & Left Feet) Anesthesia Reaction: No Hx Neurological Disorder: No Hx Respiratory Disorders: No Hx Cardiac Disorders: No Hx Psychiatric Problems: No Hx Miscellaneous Medical Probl: No Hx Alcohol Use: No Hx Substance Use: No Hx Tobacco Use: Yes FmHx Family History: No diabetes, No coronary disease, No other Physical Exam Vitals Vital Signs Date Temp Pulse Resp B/P (MAP) Pulse Ox O2 O2 Flow FiO2 Time Delivery Rate 12/01/18 98.1 91 16 132/78 98 14:05 (96) Physical Exam GENERAL: The patient is well-appearing, well-nourished, in no acute distress CHEST: Clear to auscultation bilaterally. There are no rales, wheezes or rhonchi. HEART: Regular rate and rhythm. No murmurs, clicks, rubs or gallops. EXTREMITIES: Equal pulses bilaterally. There is no peripheral clubbing, cyanosis or edema. No focal swelling or erythema. Full range of motion. Gross ly neurovascularly intact. NEUROLOGIC: Alert and oriented. Cranial nerves II through XII intact. Motor strength in all 4 extremities with 5 out of 5 strength. Sensation grossly intact. SKIN: Erythema and pustules noted at the site of tape application. No erythema noted around the insertion site of the PICC line. Results 24 hrs Current Medications Medications Dose Sig/Umesh Start Time Status Last (Trade) Ordered Route PRN Stop Time Admin Dose Reason Admin Lidocaine 5 ml ONCE ONCE 12/01/18 (Xylocaine SC 15:30 1% (Mpf)) 12/01/18 15:31 Procedures/MDM Course: New PICC line inserted into right arm. Previous PICC line removed from left arm without complication. Procedure was done by PICC line nurses from the [facility]: 38-year-old male presenting for PICC line replacement. There appears to be folliculitis and contact dermatitis at the site of the previous PICC line due to adhesive irritation. I have low suspicion for infection in the PICC line however I will treat with topical antibiotics and oral antibiotics. Patient is discharged with strict ER precautions and told to follow-up with primary care within 1 to 2 days for close evaluation. Patient is told symptoms change or worsen to return immediately to the ER. All questions answered at discharge Departure Diagnosis: Primary Impression: Folliculitis Additional Impression: S/P PICC central line placement Condition: Stable Patient Instructions: Folliculitis Referrals: [facility] YOU HAVE RECEIVED A MEDICAL SCREENING EXAM AND THE RESULTS INDICATE THAT YOU DO NOT HAVE A CONDITION THAT REQUIRES URGENT TREATMENT IN THE EMERGENCY DEPARTMENT. FURTHER EVALUATION AND TREATMENT OF YOUR CONDITION CAN WAIT UNTIL YOU ARE SEEN IN YOUR DOCTORS OFFICE WITHIN THE NEXT 1-2 DAYS. IT IS YOUR RESPONSIBILITY TO MAKE AN APPOINTMENT FOR FOLOW-UP CARE. IF YOU HAVE A PRIMARY DOCTOR --you should call your primary doctor and schedule an appointment IF YOU DO NOT HAVE A PRIMARY DOCTOR YOU CAN CALL OUR PHYSICIAN REFERRAL HOTLINE AT IF YOU CAN NOT AFFORD TO SEE A PHYSICIAN YOU CAN CHOSE FROM THE FOLLOWING [facility] [id number] [facility]. [facility] [address] [facility]. [facility] [address] [facility] [facility] [address] [facility]. [facility] [address] [facility]. [facility]. [address] [place] Additional Instructions: FOLLOW UP WITH YOUR PRIMARY CARE PHYSICIAN TOMORROW.Return to this facility if you are not improving as expected. CONNOR MAHARAJ PA-C Dec 01, 2018 15:23
[2018-12-01] MEDS ORDERED: LIDOCAINE 1% (MPF) 5 ML VIAL SC ONE (15:30)
== END 2018-12-01 17:37 | disposition home or self-care (01) ==
LOC: FTE 13:59
DX: L73.9 Follicular disorder, unspecified (principal); Y71.2 Prosthetic and other implants, materials and accessory cardiovascular devices associated with adverse incidents; Z79.82 Long term (current) use of aspirin; Z79.84 Long term (current) use of oral hypoglycemic drugs; Z87.891 Personal history of nicotine dependence; Z45.2 Encounter for adjustment and management of vascular access device
CPT/HCPCS: 36569; 71045; 76937; Z7502; Z7610

== ENCOUNTER 2018-12-18 16:22 | Inpatient (IN) | payer OTHER ==
[~2018-12-18] VITALS: Ht 332.7 cm; Wt 111.0 kg
[~2018-12-18 16:22] MED LIST changes: +AMOX1TAB10 PO; +APIX5TAB PO; +CEPH-443 PO; +METF850T13 PO; +MUPI22OI2 TOP; +OMEG-135 PO; +OXYC-438 PO; +SULF1TAB31 PO
[2018-12-18] MEDS ORDERED: morphine 4 MG/ML VIAL IV STA (18:40)
[2018-12-18] MEDS ORDERED: SOD CHLORIDE 0.9% 1,000 ML IV STA (18:40)
[2018-12-18] MEDS ORDERED: SOD CHLORIDE 0.9% 100 ML ONE (18:41)
[2018-12-18] MEDS ORDERED: IOHEXOL 300MG/ML 150 ML BTL ONE (18:41)
[2018-12-18] MEDS ORDERED: HEPARIN 25000 UNITS/250 ML 250 ML IV STA (19:37)
[2018-12-18] MEDS ORDERED: HYDROmorphONE 2 MG/ML SYG IV STA (20:36)
[2018-12-18] MEDS ORDERED: ACETAMINOPHEN 325 MG TAB PO PRN ×2 (21:00→23:30)
[2018-12-18] MEDS ORDERED: ONDANSETRON 4 MG INJ IV PRN ×2 (21:00→23:30)
[2018-12-18] MEDS ORDERED: INSULIN GLARGINE [LANTus] (100 UNITS/ML) SYG SC SCH (23:00)
[2018-12-18] MEDS ORDERED: ALBUTEROL/IPRATROPIUM (NEB) 3 ML AMP HHN PRN (23:30)
[2018-12-18] MEDS ORDERED: NACL 0.9% 3 ML SYG IV SCH (23:30)
[2018-12-18] MEDS ORDERED: GLUCAGON 1 MG INJ IM PRN (23:45)
[2018-12-18] MEDS ORDERED: GLUCOSE GEL 15 GRAM TUBE PO PRN ×2 (23:45)
[2018-12-18] MEDS ORDERED: DEXTROSE 50% 50 ML SYRINGE IV PRN ×2 (23:45)
[2018-12-18] MEDS ORDERED: GLUCOSE GEL 15 GRAM TUBE BUCCAL PRN (23:45)
[2018-12-18] MEDS: SOD CHLORIDE 0.9% 1,000 ML IV SCH (23:45)
[2018-12-19] VITALS: BP 109/69; PULSE 87; RESP 18
[2018-12-19] MEDS ORDERED: SUMATRIPTAN 6 MG/0.5 ML INJ SC ONE (01:30)
[2018-12-19] MEDS ORDERED: morphine 4 MG/ML VIAL IV ONE (01:51)
[2018-12-19] MEDS ORDERED: VANCOMYCIN IV PER PHARMACY XX SCH (02:00)
[2018-12-19] MEDS: ACCU-CHEK XX SCH (02:00)
[2018-12-19] MEDS: PIPER-TAZO 3.375 GM IV (PMX) 100 ML IVPB SCH ×2 (02:10→09:34)
[2018-12-19 02:37] VITALS: Ht 332.7 cm; Wt 111.0 kg
[2018-12-19] MEDS ORDERED: VANCOMYCIN HCL 2 GM in SOD CHLORIDE 0.9% 500 ML IVPB SCH (03:00)
[2018-12-19] MEDS ORDERED: HEPARIN 1000 UNITS/ML 10 ML INJ IV PRN ×2 (04:00→10:00)
[2018-12-19] MEDS ORDERED: HEPARIN 1000 UNITS/ML 10 ML INJ IV ONE (04:00)
[2018-12-19] MEDS ORDERED: HEPARIN 25000 UNITS/250 ML 250 ML IV SCH (04:00)
[2018-12-19 04:23] VITALS: BP 119/74; PULSE 84; RESP 18
[2018-12-19] MEDS: PANTOPRAZOLE (EC) 40 MG TAB PO SCH (05:38)
[2018-12-19 07:33] VITALS: BP 116/76; PULSE 82; RESP 20
[2018-12-19] MEDS: INSULIN ASPART [NOVOLOG] 3 ML PEN SC SCH ×7 (08:06→21:00)
[2018-12-19] MEDS ORDERED: NON-FORMULARY/PATIENT OWN MED (Omeprazole* 20 MG) PO SCH (09:00)
[2018-12-19] MEDS ORDERED: HEPARIN 5,000 UNIT/1 ML VIAL SC SCH (09:00)
[2018-12-19] MEDS: FISH OIL 1,000 MG CAP PO SCH ×2 (09:34→21:19)
[2018-12-19] MEDS: ASPIRIN (EC) 81 MG TAB PO SCH (09:34)
[2018-12-19] MEDS: HYDROCODONE/APAP (5/325) TAB PO PRN ×3 (10:37→21:24)
[2018-12-19 11:12] VITALS: BP 119/80; PULSE 85; RESP 20
[2018-12-19] MEDS: SOD CHLORIDE 0.9% 1,000 ML IV SCH (12:00)
[2018-12-19] MEDS: APIXABAN 5 MG TABLET PO SCH ×2 (15:01→21:19)
[2018-12-19 15:17] VITALS: BP 110/73; PULSE 81; RESP 20
[2018-12-19 20:00] VITALS: BP 108/63; PULSE 76; RESP 18
[2018-12-19] MEDS: ATORVASTATIN 80 MG TAB PO SCH (21:19)
[2018-12-19] MEDS: INSULIN GLARGINE [LANTus] (100 UNITS/ML) SYG SC SCH (21:25)
[2018-12-20] VITALS: BP 120/69; PULSE 79; RESP 18
[2018-12-20] MEDS: SOD CHLORIDE 0.9% 1,000 ML IV SCH (00:43)
[2018-12-20] MEDS: HYDROCODONE/APAP (5/325) TAB PO PRN ×2 (00:44→09:22)
[2018-12-20] MEDS: ACCU-CHEK XX SCH (01:45)
[2018-12-20 04:00] VITALS: BP 132/82; PULSE 78; RESP 18
[2018-12-20] MEDS: PANTOPRAZOLE (EC) 40 MG TAB PO SCH (06:22)
[2018-12-20 07:20] VITALS: BP 121/73; PULSE 80; RESP 19
[2018-12-20] MEDS: INSULIN ASPART [NOVOLOG] 3 ML PEN SC SCH ×7 (07:55→21:52)
[2018-12-20] MEDS: FISH OIL 1,000 MG CAP PO SCH ×2 (09:20→21:48)
[2018-12-20] MEDS: ASPIRIN (EC) 81 MG TAB PO SCH (09:20)
[2018-12-20] MEDS: APIXABAN 5 MG TABLET PO SCH ×2 (09:21→21:48)
[2018-12-20 11:44] VITALS: BP 119/74; PULSE 72; RESP 17
[2018-12-20 15:28] VITALS: BP 126/76; PULSE 74; RESP 18
[2018-12-20] MEDS: morphine 2 MG INJ IV PRN ×2 (15:41→21:54)
[2018-12-20 20:02] VITALS: BP 113/73; PULSE 86; RESP 18
[2018-12-20] MEDS: ATORVASTATIN 80 MG TAB PO SCH (21:48)
[2018-12-20] MEDS: INSULIN GLARGINE [LANTus] (100 UNITS/ML) SYG SC SCH (21:52)
[2018-12-21 00:05] VITALS: BP 127/79; PULSE 89; RESP 18
[2018-12-21] MEDS: ACCU-CHEK XX SCH (02:00)
[2018-12-21 05:30] VITALS: BP 128/72; PULSE 68; RESP 18
[2018-12-21] MEDS: PANTOPRAZOLE (EC) 40 MG TAB PO SCH (06:43)
[2018-12-21] MEDS: morphine 2 MG INJ IV PRN (07:04)
[2018-12-21] MEDS: INSULIN ASPART [NOVOLOG] 3 ML PEN SC SCH ×7 (07:42→20:34)
[2018-12-21 07:43] VITALS: BP 138/83; PULSE 64; RESP 18
[2018-12-21] MEDS: ASPIRIN (EC) 81 MG TAB PO SCH (08:28)
[2018-12-21] MEDS: FISH OIL 1,000 MG CAP PO SCH ×2 (08:28→20:25)
[2018-12-21] MEDS: APIXABAN 5 MG TABLET PO SCH ×2 (08:28→20:26)
[2018-12-21] MEDS: metFORMIN 850 MG TAB PO SCH ×2 (10:09→17:38)
[2018-12-21 11:35] VITALS: BP 121/77; PULSE 74; RESP 18
[2018-12-21] MEDS: OXYCODONE/ACETAMINOPHEN (5/325) TAB PO PRN ×2 (14:17→20:30)
[2018-12-21 16:29] VITALS: BP 105/74; PULSE 100; RESP 18
[2018-12-21 20:16] VITALS: BP 122/75; PULSE 78; RESP 18
[2018-12-21] MEDS: ATORVASTATIN 80 MG TAB PO SCH (20:25)
[2018-12-21] MEDS: INSULIN GLARGINE [LANTus] (100 UNITS/ML) SYG SC SCH (20:29)
[2018-12-22 00:07] VITALS: BP 125/71; PULSE 81; RESP 18
[2018-12-22] MEDS: ACCU-CHEK XX SCH (02:19)
[2018-12-22 04:42] VITALS: BP 110/64; PULSE 74; RESP 18
[2018-12-22] MEDS: PANTOPRAZOLE (EC) 40 MG TAB PO SCH (07:03)
[2018-12-22] MEDS: INSULIN ASPART [NOVOLOG] 3 ML PEN SC SCH ×4 (07:46→12:05)
[2018-12-22] MEDS: metFORMIN 850 MG TAB PO SCH ×2 (07:47→17:36)
[2018-12-22 08:03] VITALS: BP 116/77; RESP 18
[2018-12-22 08:07] VITALS: BP 154/71; PULSE 72; RESP 18
[2018-12-22] MEDS: OXYCODONE/ACETAMINOPHEN (5/325) TAB PO PRN ×2 (08:07→16:13)
[2018-12-22] MEDS: APIXABAN 5 MG TABLET PO SCH ×2 (08:08→17:37)
[2018-12-22] MEDS: ASPIRIN (EC) 81 MG TAB PO SCH (08:08)
[2018-12-22] MEDS: FISH OIL 1,000 MG CAP PO SCH (08:08)
[2018-12-22 11:47] VITALS: BP 111/69; PULSE 76; RESP 18
[2018-12-22 15:17] VITALS: BP 115/69; PULSE 77; RESP 18
[2018-12-26] MEDS ORDERED: APIXABAN 5 MG TABLET PO SCH (09:00)
== END 2018-12-22 18:03 | disposition home or self-care (01) | DRG 299 ==
LOC: E/R 16:22 → 6WM 20:37
PROVIDERS: ADMIT Internal Medicine; ATTEND Internal Medicine
DX: I82.C13 Acute embolism and thrombosis of internal jugular vein, bilateral (principal); I26.99 Other pulmonary embolism without acute cor pulmonale; M86.9 Osteomyelitis, unspecified; I82.621 Acute embolism and thrombosis of deep veins of right upper extremity; I82.890 Acute embolism and thrombosis of other specified veins; E11.65 Type 2 diabetes mellitus with hyperglycemia; E11.621 Type 2 diabetes mellitus with foot ulcer
CPT/HCPCS: 36415; 70492; 71260; 80048; 80053; 80061; 82962; 83036; 83735; 84100; 84484; 85025; 85610; 85730; 93005; 96374; J1170; J1644; J1815; J2270; J2543; J3030; J3370; J7030; J7040; Q9967

== ENCOUNTER 2018-12-31 17:37 | Emergency (ER) | payer OTHER ==
[~2018-12-31] VITALS: Ht 180.3 cm; Wt 110.9 kg
[~2018-12-31 17:37] MED LIST changes: -CEPH-443 PO; -MERO1VIA3 IV; -MUPI22OI2 TOP; -Vancomycin Iv Per Pharmacy XX
[2018-12-31 17:59] VITALS: Ht 180.3 cm; Wt 110.9 kg
[2018-12-31 22:20] VITALS: BP 120/80; PULSE 87; RESP 16
== END 2018-12-31 23:00 | disposition home or self-care (01) ==
LOC: E/R 17:37
DX: E13.621 Other specified diabetes mellitus with foot ulcer (principal); L97.529 Non-pressure chronic ulcer of other part of left foot with unspecified severity; F17.210 Nicotine dependence, cigarettes, uncomplicated; Z79.4 Long term (current) use of insulin
CPT/HCPCS: 73630; 80053; 85025; 85651; 86140; Z7502